=== PATIENT | male | born 1940 | race American Indian/Alaskan Native ===

== ENCOUNTER 2017-03-20 19:10 | Emergency (ER) | payer MEDICARE ==
--- NOTE | 2017-03-20 20:50 | Emergency Department Report ---
ED Fall HPI - General Chief Complaint: Fall Stated Complaint: LEFT RIB INJURY Time Seen by Provider: 03/20/17 20:34 Source: patient Mode of arrival: Ambulatory - History of Present Illness Initial Comments: Patient is a 76-year-old male history of hypertension brought into the ER for evaluation after a fall. Patient stated that he was going up a stair when he tripped and fell on his left side. Patient denied any head injury or loss of consciousness. No bowel or bladder incontinence. No weakness numbness or tingling sensation. Patient is complaining of left upper chest pain and mid thoracic pain. MD Complaint: fall -: Sudden, This evening Fall From: down stairs (#) When Fall Occurred: just prior to arrival Fall Witnessed: yes, by family Place Fall Occurred: home Loss of Consciousness: none Prolonged Down Time?: no Symptoms Prior to Fall: none Location: face, chest, back Severity: moderate Quality: sharp Context: tripped/slipped Associated Symptoms: denies, chest paint. denies: headache, neck pain, numbness , weakness, shortness of breath, abdominal pain, hematuria, unable to walk, lightheaded, vertigo, confusion - Related Data Previous Rx's Medication Instructions Recorded Last Taken Type Aspirin [Adult Low Dose Aspirin EC] 81 mg PO DAILY #30 tablet. 05/10/15 Unknown Rx Losartan [Cozaar] 50 mg PO QHS #30 tablet 05/10/15 Unknown Rx amLODIPine [Norvasc] 10 mg PO HS #30 tablet 05/10/15 Unknown Rx Allergies Allergy/AdvReac Type Severity Reaction Status Date / Time No Known Allergies Allergy Unverified 05/09/15 11:40 ED Review of Systems ROS: Stated complaint: LEFT RIB INJURY Other details as noted in HPI Comment: All other systems reviewed and negative Constitutional: denies: chills, fever Respiratory: denies: cough, shortness of breath, SOB with exertion, SOB at rest Cardiovascular: chest pain. denies: palpitations, dyspnea on exertion, orthopnea, paroxysmal nocturnal dyspnea Gastrointestinal: denies: abdominal pain, nausea, vomiting, diarrhea, constipation, hematemesis, melena, hematochezia Genitourinary: denies: urgency, frequency Musculoskeletal: back pain. denies: joint swelling, arthralgia Skin: denies: rash, lesions Neurological: denies: headache, weakness, numbness, paresthesias, confusion, abnormal gait, vertigo ED Past Medical Hx - Past Medical History Previous Medical History?: Yes Hx Hypertension: Yes - Surgical History Past Surgical History?: Yes Hx Appendectomy: Yes (approx 40 yrs ago per pt) - Social History Smoking Status: Never Smoker Substance Use Type: Alcohol - Medications Home Medications: Home Medications Medication Instructions Recorded Confirmed Last Taken Type Aspirin [Adult Low Dose Aspirin EC] 81 mg PO DAILY #30 tablet. 05/10/15 Unknown Rx Losartan [Cozaar] 50 mg PO QHS #30 tablet 05/10/15 Unknown Rx amLODIPine [Norvasc] 10 mg PO HS #30 tablet 05/10/15 Unknown Rx ED Physical Exam - General Limitations: No Limitations General appearance: alert, in no apparent distress - Head Head exam: Present: atraumatic, normocephalic, normal inspection - Eye Eye exam: Present: other (left eye with subconjunctival hemorrhage) Pupils: Present: normal accommodation - ENT ENT exam: Present: normal exam, normal orophraynx, mucous membranes moist - Neck Neck exam: Present: normal inspection, full ROM. Absent: tenderness, meningismus, lymphadenopathy, thyromegaly - Respiratory Respiratory exam: Present: normal lung sounds bilaterally, chest wall tenderness , other (left upper chest tenderness). Absent: respiratory distress, wheezes, rales, rhonchi, stridor, accessory muscle use, decreased breath sounds, prolonged expiratory - Cardiovascular Cardiovascular Exam: Present: regular rate, normal rhythm, normal heart sounds - GI/Abdominal GI/Abdominal exam: Present: soft, diminished bowel sounds. Absent: distended, tenderness, guarding, rebound, rigid, normal bowel sounds, organomegaly, mass, bruit, pulsatile mass, hernia - Extremities Exam Extremities exam: Present: normal inspection, full ROM, normal capillary refill - Back Exam Back exam: Present: normal inspection, paraspinal tenderness. Absent: tenderness, CVA tenderness (R), CVA tenderness (L), muscle spasm - Neurological Exam Neurological exam: Present: alert, oriented X3, CN II-XII intact, reflexes normal. Absent: abnormal gait, motor sensory deficit - Skin Skin exam: Present: warm, intact, normal color ED Course Vital Signs 03/20/17 03/20/17 03/20/17 19:17 20:10 20:15 Temperature 98 F 98.3 F Pulse Rate 83 76 Respiratory 18 16 16 Rate Blood Pressure 164/87 Blood Pressure 159/84 [Right] O2 Sat by Pulse 97 96 93 Oximetry 03/20/17 03/20/17 03/20/17 20:30 20:46 20:51 Temperature Pulse Rate 78 79 76 Respiratory 17 16 Rate Blood Pressure 146/81 146/81 Blood Pressure [Right] O2 Sat by Pulse 97 97 Oximetry 03/20/17 03/20/17 03/20/17 21:06 21:16 21:17 Temperature Pulse Rate 78 78 Respiratory 24 17 16 Rate Blood Pressure 146/81 139/83 Blood Pressure [Right] O2 Sat by Pulse 92 Oximetry 03/20/17 03/20/17 03/20/17 21:30 21:46 21:47 Temperature Pulse Rate 74 75 Respiratory 15 11 L 16 Rate Blood Pressure 142/73 142/73 Blood Pressure [Right] O2 Sat by Pulse 96 96 Oximetry ED Medical Decision Making - EKG Data -: EKG Interpreted by Mo EKG shows normal: sinus rhythm Rate: normal - EKG Data Interpretation: no acute changes - Radiology Data Radiology results: report reviewed Referring Physician: VIELKA SALAZAR Patient Name: VIJAY MCCLELLAN Date of : 1940 Sex: Male Report Date: 2017-03-20 Report Status: Finalized Findings [address] [address] XRay Report Signed Patient: VIJAY MCCLELLAN MR#: [id number] : 1940 Acct:[id number] Age/Sex: 76 / M ADM Date: 03/20/17 Loc: ED Attending Dr: Ordering Physician: VIELKA SALAZAR Date of Service: 03/20/17 Procedure(s): XR ribs UNILAT 2V LT Accession Number(s): [id number] cc: VIELKA SALAZAR Fluoro Time In Minutes: FINAL REPORT PROCEDURE: XR RIBS UNILAT 2V LT TECHNIQUE: Unilateral rib radiographs, 2 views of the LEFT ribs. HISTORY: s/p fall rib pain COMPARISON: No prior studies are available for comparison. FINDINGS: There are minimally displaced acute fractures of the left posterior lateral 5th, 6th, and 7th ribs. No underlying pneumothorax is identified. There appears to be left pleural fluid present. IMPRESSION: Left 5th, 6th, and 7th rib fractures Transcribed By: [facility] Dictated By: YUSUF LEONARDO M.D. Electronically Authenticated By: YUSUF LEONARDO M.D. Signed Date/Time: 03/20/171728 DD/ 28 TD/TT: 03/20/171728 - Medical Decision Making Patient stated that he is feeling much better. I informed him about his 3 fractures and the need to take a deep breath to prevent atelectasis and pneumonia. I advised him to return to the ER if he started developing any shortness of breath or chest pain. Critical care attestation.: If time is entered above; I have spent that time in minutes in the direct care of this critically ill patient, excluding procedure time. ED Disposition Clinical Impression: Multiple fractures of ribs of left side, Fall with injury Disposition: DC-01 TO HOME OR SELFCARE Is pt being admited?: No Condition: Stable Instructions: Rib Fracture (ED), Fall Prevention (ED)
[2017-03-20] MEDS ORDERED: MORPHINE IM ONE (20:56)
[2017-03-20] MEDS ORDERED: ZOFRAN IM ONE (20:56)
--- NOTE | 2017-03-20 21:33 | XRay Report ---
FINAL REPORT PROCEDURE: XR RIBS UNILAT 2V LT TECHNIQUE: Unilateral rib radiographs, 2 views of the LEFT ribs. HISTORY: s/p fall rib pain COMPARISON: No prior studies are available for comparison. FINDINGS: There are minimally displaced acute fractures of the left posterior lateral 5th, 6th, and 7th ribs. No underlying pneumothorax is identified. There appears to be left pleural fluid present. IMPRESSION: Left 5th, 6th, and 7th rib fractures
--- NOTE | 2017-03-20 21:38 | XRay Report ---
FINAL REPORT PROCEDURE: XR SPINE THORACIC 2V TECHNIQUE: Thoracic spine, AP and lateral views HISTORY: Pain after BACK INJURY COMPARISON: No prior studies are available for comparison. FINDINGS: No scoliosis. There are multilevel degenerative disc changes of the mid thoracic spine, with disc space narrowing and anterior osteophyte formation. IMPRESSION: Multilevel degenerative disc changes. No acute osseous abnormality is identified
[2017-03-20 22:02] LABS: Bilirubin,Urine NEG (Negative); Blood,Urine NEG (Negative); Color,Urine Amber (Yellow); Mucus,Urine FEW /HPF; Nitrite,Urine NEG (Negative)
[2017-03-21 00:27] VITALS: BP 136/78
== END 2017-03-21 | disposition home or self-care (01) ==
LOC: ED 19:10
DX: S22.42XA Multiple fractures of ribs, left side, initial encounter for closed fracture (principal); I10 Essential (primary) hypertension; W01.0XXA Fall on same level from slipping, tripping and stumbling without subsequent striking against object, initial encounter; Y93.89 Activity, other specified; Y92.89 Other specified places as the place of occurrence of the external cause; Y99.8 Other external cause status
CPT/HCPCS: 71100; 72070; 81001; 93005; 93010; 96372; 99284; J2270; J2405

== ENCOUNTER 2021-08-15 14:57 | Inpatient (IN) | payer MEDICARE ==
--- NOTE | 2021-08-15 16:23 | XRay Report ---
CHEST 1 VIEW INDICATION: Altered Mental Status. COMPARISON: 05/09/2015 FINDINGS: SUPPORT DEVICES: None. HEART: Within normal limits. LUNGS/PLEURA: Mild patchy left greater than right basilar airspace disease centrally. No effusion. ADDITIONAL FINDINGS: None. IMPRESSION: 1. Lung findings as above. Signer Name: Kevin Saleh MD Signed: 08/15/2021 4:18 PM Workstation Name: [id number]
[2021-08-15 17:00] LABS: Basophils % (Auto) 0.5 % (0.0-1.8); Eosinophils # (Auto) 0.1 K/mm3 (0.0-0.4); Eosinophils % (Auto) 0.8 % (0.0-4.3); Hematocrit 36.7 % (35.5-45.6); Hemoglobin 11.8 gm/dl (11.8-15.2); Lymphocytes # (Auto) 0.7 K/mm3 (1.2-5.4); Lymphocytes % (Auto) 6.6 % (13.4-35.0); Mean Corpuscular HGB Conc 32 % (32-34); Mean Corpuscular Volume 98 fl (84-94); Monocytes # (Auto) 0.7 K/mm3 (0.0-0.8); Monocytes % (Auto) 6.5 % (0.0-7.3); Platelet Count 337 K/mm3 (140-440); Red Blood Count 3.73 M/mm3 (3.65-5.03); Red Cell Distribution Width 14.5 % (13.2-15.2)
--- NOTE | 2021-08-15 17:02 | Emergency Department Report ---
ED General Adult HPI - General Chief complaint: Syncope Stated complaint: AMS/SYNCOPAL Time Seen by Provider: 08/15/21 15:25 Source: EMS Mode of arrival: Stretcher Limitations: Altered Mental Status, Physical Limitation - History of Present Illness Initial comments: The patient presents to the emergency department with a chief complaint of syncope/altered mental status. Per the patient's family the patient has a history of dementia but has been acting differently over the last couple of days. They state today patient had a fall striking his head. Patient was unconscious upon initial evaluation. They are not sure if the patient passed out first resulting in him hitting his head or if he hit his head and then passed out. -: Sudden Location: head Consistency: constant Improves with: none Worsens with: none Associated Symptoms: denies other symptoms Treatments Prior to Arrival: none - Related Data Previous Rx's Medication Instructions Recorded Last Taken Type Aspirin [Adult Low Dose Aspirin EC] 81 mg PO DAILY #30 tablet. 05/10/15 Unknown Rx Losartan [Cozaar] 50 mg PO QHS #30 tablet 05/10/15 Unknown Rx amLODIPine 10 mg PO HS #30 tablet 05/10/15 Unknown Rx Ondansetron [Zofran Odt] 4 mg PO Q8HR PRN #20 tab.rapdis 03/20/17 Unknown Rx oxyCODONE /ACETAMINOPHEN [Percocet 1 tab PO Q6HR PRN #20 tablet 03/20/17 Unknown Rx 5/325] Allergies Allergy/AdvReac Type Severity Reaction Status Date / Time No Known Allergies Allergy Unverified 05/09/15 11:40 ED Review of Systems ROS: Stated complaint: AMS/SYNCOPAL Other details as noted in HPI Comment: Unobtainable due to pts medical conditions (dementia) ED Past Medical Hx - Past Medical History Previous Medical History?: Yes Hx Hypertension: Yes Hx Dementia: Yes - Surgical History Past Surgical History?: Yes Hx Appendectomy: Yes (approx 40 yrs ago per pt) - Social History Smoking Status: Unknown if ever smoked - Medications Home Medications: Home Medications Medication Instructions Recorded Confirmed Last Taken Type Aspirin [Adult Low Dose Aspirin EC] 81 mg PO DAILY #30 tablet. 05/10/15 Unknown Rx Losartan [Cozaar] 50 mg PO QHS #30 tablet 05/10/15 Unknown Rx amLODIPine 10 mg PO HS #30 tablet 05/10/15 Unknown Rx Ondansetron [Zofran Odt] 4 mg PO Q8HR PRN #20 tab.rapdis 03/20/17 Unknown Rx oxyCODONE /ACETAMINOPHEN [Percocet 1 tab PO Q6HR PRN #20 tablet 03/20/17 Unknown Rx 5/325] ED Physical Exam - General Limitations: Altered Mental Status, Physical Limitation General appearance: in no apparent distress, other (confused) - Head Head exam: Present: atraumatic, normocephalic - Eye Eye exam: Present: normal appearance, PERRL. Absent: scleral icterus, conjunctival injection - ENT ENT exam: Present: normal exam, mucous membranes moist - Respiratory Respiratory exam: Present: normal lung sounds bilaterally. Absent: respiratory distress, wheezes - Cardiovascular Cardiovascular Exam: Present: regular rate, normal rhythm - GI/Abdominal GI/Abdominal exam: Present: soft, normal bowel sounds. Absent: distended, tende rness - Extremities Exam Extremities exam: Present: normal inspection - Neurological Exam Neurological exam: Present: other (Not able to fully assess due to the patient's baseline dementia. But patient moves all extremities without issue) - Psychiatric Psychiatric exam: Present: other (Limited due to the patient's baseline dementia) ED Course Vital Signs 08/15/21 08/15/21 08/15/21 15:11 15:57 16:00 Temperature 97.4 F L Pulse Rate 62 70 Respiratory 17 11 L 14 Rate Blood Pressure Blood Pressure 114/70 [Left] O2 Sat by Pulse 97 96 97 Oximetry 08/15/21 08/15/21 08/15/21 16:01 16:15 16:30 Temperature Pulse Rate 79 62 60 Respiratory 13 15 15 Rate Blood Pressure 135/65 135/65 135/65 Blood Pressure [Left] O2 Sat by Pulse 77 L 100 100 Oximetry 08/15/21 08/15/21 08/15/21 16:45 17:01 17:15 Temperature Pulse Rate 76 63 58 L Respiratory 13 16 12 Rate Blood Pressure Blood Pressure [Left] O2 Sat by Pulse 97 100 100 Oximetry 08/15/21 08/15/21 08/15/21 17:31 17:45 18:01 Temperature Pulse Rate 61 59 L 59 L Respiratory 12 16 15 Rate Blood Pressure 123/57 123/57 123/57 Blood Pressure [Left] O2 Sat by Pulse 88 99 100 Oximetry ED Medical Decision Making - Lab Data Result diagrams: 08/15/21 16:52 Lab Results 08/15/21 08/15/21 08/15/21 Range/Units 16:52 16:52 16:52 WBC 10.2 (4.5-11.0) K/mm3 RBC 3.73 (3.65-5.03) M/mm3 Hgb 11.8 (11.8-15.2) gm/dl Hct 36.7 (35.5-45.6) % MCV 98 H (84-94) fl MCH 32 (28-32) pg MCHC 32 (32-34) % RDW 14.5 (13.2-15.2) % Plt Count 337 (140-440) K/mm3 Lymph % (Auto) 6.6 L (13.4-35.0) % Holmes % (Auto) 6.5 (0.0-7.3) % Eos % (Auto) 0.8 (0.0-4.3) % Baso % (Auto) 0.5 (0.0-1.8) % Lymph # (Auto) 0.7 L (1.2-5.4) K/mm3 Holmes # (Auto) 0.7 (0.0-0.8) K/mm3 Eos # (Auto) 0.1 (0.0-0.4) K/mm3 Baso # (Auto) 0.0 (0.0-0.1) K/mm3 Seg Neutrophils % 85.6 H (40.0-70.0) % Seg Neutrophils # 8.7 H (1.8-7.7) K/mm3 PT 13.6 (12.2-14.9) Sec. INR 0.94 (0.87-1.13) APTT 33.2 (24.2-36.6) Sec. Lactic Acid 5.50 H* (0.7-2.0) mmol/L Ammonia (25-60) umol/L Total Creatine Kinase (55-170) units/L Troponin T (0.00-0.029) ng/mL TSH (0.270-4.200) mlU/mL Plasma/Serum Alcohol (0-0.07) % 08/15/21 08/15/21 08/15/21 Range/Units 16:52 16:52 16:52 WBC (4.5-11.0) K/mm3 RBC (3.65-5.03) M/mm3 Hgb (11.8-15.2) gm/dl Hct (35.5-45.6) % MCV (84-94) fl MCH (28-32) pg MCHC (32-34) % RDW (13.2-15.2) % Plt Count (140-440) K/mm3 Lymph % (Auto) (13.4-35.0) % Holmes % (Auto) (0.0-7.3) % Eos % (Auto) (0.0-4.3) % Baso % (Auto) (0.0-1.8) % Lymph # (Auto) (1.2-5.4) K/mm3 Holmes # (Auto) (0.0-0.8) K/mm3 Eos # (Auto) (0.0-0.4) K/mm3 Baso # (Auto) (0.0-0.1) K/mm3 Seg Neutrophils % (40.0-70.0) % Seg Neutrophils # (1.8-7.7) K/mm3 PT (12.2-14.9) Sec. INR (0.87-1.13) APTT (24.2-36.6) Sec. Lactic Acid (0.7-2.0) mmol/L Ammonia 24.0 L (25-60) umol/L Total Creatine Kinase 68 (55-170) units/L Troponin T 0.018 (0.00-0.029) ng/mL TSH 7.680 H (0.270-4.200) mlU/mL Plasma/Serum Alcohol (0-0.07) % 08/15/21 Range/Units 16:52 WBC (4.5-11.0) K/mm3 RBC (3.65-5.03) M/mm3 Hgb (11.8-15.2) gm/dl Hct (35.5-45.6) % MCV (84-94) fl MCH (28-32) pg MCHC (32-34) % RDW (13.2-15.2) % Plt Count (140-440) K/mm3 Lymph % (Auto) (13.4-35.0) % Holmes % (Auto) (0.0-7.3) % Eos % (Auto) (0.0-4.3) % Baso % (Auto) (0.0-1.8) % Lymph # (Auto) (1.2-5.4) K/mm3 Holmes # (Auto) (0.0-0.8) K/mm3 Eos # (Auto) (0.0-0.4) K/mm3 Baso # (Auto) (0.0-0.1) K/mm3 Seg Neutrophils % (40.0-70.0) % Seg Neutrophils # (1.8-7.7) K/mm3 PT (12.2-14.9) Sec. INR (0.87-1.13) APTT (24.2-36.6) Sec. Lactic Acid (0.7-2.0) mmol/L Ammonia (25-60) umol/L Total Creatine Kinase (55-170) units/L Troponin T (0.00-0.029) ng/mL TSH (0.270-4.200) mlU/mL Plasma/Serum Alcohol < 0.01 (0-0.07) % - Radiology Data Radiology results: report reviewed - Medical Decision Making IV fluids at 30 cc/kg were initiated IV antibiotics initiated Critical Care Time: Yes Critical care time in (mins) excluding proc time.: 35 Critical care attestation.: If time is entered above; I have spent that time in minutes in the direct care of this critically ill patient, excluding procedure time. ED Disposition Clinical Impression: Sepsis Disposition: 09 ADMITTED INPATIENT Is pt being admited?: Yes Does the pt Need Aspirin: No Condition: Fair Referrals: PRIMARY CARE, [Primary Care Provider] - 3-5 Days
[2021-08-15 17:13] LABS: INR 0.94 (0.87-1.13)
[2021-08-15 17:14] LABS: Partial Thromboplastin Time 33.2 Sec. (24.2-36.6)
[2021-08-15] MEDS ORDERED: CEFEPIME/NS 2 GM/100 ML 2 GM/100 ML BAG IV ONE (17:33)
--- NOTE | 2021-08-15 17:53 | Cat Scan Report ---
CT head/brain wo con INDICATION / CLINICAL INFORMATION: 81 years Male; Altered Mental Status. TECHNIQUE: Routine CT head without contrast. All CT scans at this location are performed using CT dos e reduction for ALARA by means of automated exposure control. COMPARISON: No previous exams are currently available for direct comparison. FINDINGS: BRAIN / INTRACRANIAL CONTENTS: There is extensive cerebral white matter disease most consistent with microvascular angiopathy. There is moderate cerebral atrophy with associated prominence of the ventri cular system. There are mild foci calcification within the basal ganglia. There is no clear CT eviden ce of acute intracranial hemorrhage or significant mass effect. ORBITS: No significant abnormality of visualized orbits. SINUSES / MASTOIDS: There is minimal mucosal thickening along the visualized posterior left maxillary sinus. CRANIOCERVICAL JUNCTION: No significant abnormality. ADDITIONAL FINDINGS: None. IMPRESSION: 1. There is extensive microvascular angiopathy and moderate cerebral atrophy as described without CT evidence of acute intracranial hemorrhage. Signer Name: Aleksandr Wheatley MD Signed: 08/15/2021 5:49 PM Workstation Name: [id number]
[2021-08-15] MEDS ORDERED: SODIUM CHLORIDE 0.9% 1000 ML IV SOLN IV ONE (18:13)
--- NOTE | 2021-08-15 18:26 | History and Physical Report ---
History of Present Illness Chief complaint: He is getting weak History of present illness: 81 YO Male with Alzheimer's Dementia with a FAST Score of 7D, HTN, Debility presents to ED for evaluation. The patient is confused with diminished cognition and is unable to provide history. Patient history provided by EMS sta ff, ED staff, as well as the patient's son who is at bedside during exam and interview. As per son "he is getting weaker by the day". Patient son reports that over the past 2 months the patient has experienced increased weakness, diminished oral intake, weight loss, and memory loss. Patient is currently bedbound, nonambulatory, and has increasing difficulty recognizing family members. Patient tried to get out of bed today and subsequently fell striking his head on the floor with subsequent loss of consciousness. EMS was notified and upon arrival the patient was found to be in distress and subsequently transported to [facility] for further care and evaluation of the aforementioned symptoms. The patient was seen and evaluated in the emergency department. All lab and imaging studies reviewed. Patient found to have a pulse oximetry of 88% on room air which is consistent with acute hypoxemic respiratory failure. Patient also found to have pneumonia complicated by sepsis. Patient admitted to medical floor and initiated on pneumonia protocol, sepsis protocol as well as coronavirus protocol. No further history is obtainable. Patient has diminished cognition but has a positive gag reflex and is able to protect his airway without difficulty. No prior admission for review. All medication listed at time of admission has been reconciled. Advanced care planning conducted in ED. No reports of fever, chills, chest pain, palpitation, productive cough, skin rash, recent contact, known exposure to COVID-19. Past History Past Medical History: hypertension, other (See HPI) Past Surgical History: appendectomy Social history: single, lives with family. denies: smoking, alcohol abuse, prescription drug abuse Family history: hypertension Medications and Allergies Allergies Allergy/AdvReac Type Severity Reaction Status Date / Time No Known Allergies Allergy Unverified 05/09/15 11:40 Home Medications Medication Instructions Recorded Confirmed Last Taken Type Aspirin [Adult Low Dose Aspirin EC] 81 mg PO DAILY #30 tablet. 05/10/15 Unknown Rx Losartan [Cozaar] 50 mg PO QHS #30 tablet 05/10/15 Unknown Rx amLODIPine 10 mg PO HS #30 tablet 05/10/15 Unknown Rx Ondansetron [Zofran Odt] 4 mg PO Q8HR PRN #20 tab.rapdis 03/20/17 Unknown Rx oxyCODONE /ACETAMINOPHEN [Percocet 1 tab PO Q6HR PRN #20 tablet 03/20/17 Unknown Rx 5/325] Review of Systems ROS unobtainable: due to mental status Exam - Constitutional Vitals: Temp Pulse Resp BP Pulse Ox 97.4 F L 59 L 15 123/57 100 08/15/21 15:11 08/15/21 18:01 08/15/21 18:01 08/15/21 18:01 08/15/21 18:01 General appearance: Present: mild distress - EENT Eyes: Present: PERRL ENT: hearing intact, clear oral mucosa - Neck Neck: Present: supple, normal ROM - Respiratory Respiratory effort: normal Respiratory: bilateral: diminished - Cardiovascular Heart Sounds: Present: S1 & S2. Absent: rub, click - Extremities Extremities: pulses symmetrical, No edema Peripheral Pulses: abnormal (Capillary refill greater than 3.5 seconds) - Abdominal General gastrointestinal: Present: soft, non-tender, non-distended, normal bowel sounds Male genitourinary: Present: normal - Integumentary Integumentary: Present: warm, dry, clammy, decreased turgor - Musculoskeletal Musculoskeletal: generalized weakness - Psychiatric Psychiatric: no appropriate mood/affect, no intact judgment & insight, no memory intact, agitated - Neurologic Neurologic: CNII-XII intact, moves all extremities, no gait normal HEART Score - HEART Score Troponin: Troponin T 0.018 ng/mL (0.00-0.029) 08/15/21 16:52 Results - Labs CBC & Chem 7: 08/15/21 16:52 Labs: Abnormal lab results 08/15/21 08/15/21 08/15/21 Range/Units 16:52 16:52 16:52 MCV 98 H (84-94) fl Lymph % (Auto) 6.6 L (13.4-35.0) % Lymph # (Auto) 0.7 L (1.2-5.4) K/mm3 Seg Neutrophils % 85.6 H (40.0-70.0) % Seg Neutrophils # 8.7 H (1.8-7.7) K/mm3 Lactic Acid 5.50 H* (0.7-2.0) mmol/L Ammonia 24.0 L (25-60) umol/L TSH (0.270-4.200) mlU/mL 08/15/21 Range/Units 16:52 MCV (84-94) fl Lymph % (Auto) (13.4-35.0) % Lymph # (Auto) (1.2-5.4) K/mm3 Seg Neutrophils % (40.0-70.0) % Seg Neutrophils # (1.8-7.7) K/mm3 Lactic Acid (0.7-2.0) mmol/L Ammonia (25-60) umol/L TSH 7.680 H (0.270-4.200) mlU/mL Assessment and Plan - Patient Problems (1) Sepsis Current Visit: Yes Status: Acute Qualifiers: Severe sepsis acute organ dysfunction type: acute respiratory failure Plan to address problem: Sepsis protocol: Chest x-ray, CBC, urinalysis, IV antibiotic therapy, IV fluid resuscitation, maintain mean arterial pressure greater than equal to 65, monitor urine output every shift, monitor fluid balance, serial lactic acid level, blood cultures. (2) Acute hypoxemic respiratory failure Current Visit: Yes Status: Acute Plan to address problem: Chest x-ray, supplemental oxygen, pulse oximetry, nebulizer therapy, pulmonary toilet. (3) Pneumonia Current Visit: Yes Status: Acute Plan to address problem: Pneumonia protocol: Chest x-ray, CBC, CMP, supplemental oxygen, pulse oximetry, nebulizer therapy, IV antibiotic therapy, pulmonary toilet. (4) Suspected 2019-nCoV infection Current Visit: Yes Status: Acute Plan to address problem: Coronavirus protocol: IV for resuscitation therapy, IV antibiotic therapy, vitamin C therapy, vitamin D therapy, zinc therapy, prophylactic anticoagulation (5) Alzheimer's dementia Current Visit: Yes Status: Acute Qualifiers: Dementia behavioral disturbance: with behavioral disturbance Plan to address problem: Verbal prompting, verbal redirection, benzodiazepine therapy as clinically indicated. Patient has a fast score of 7D. (6) Debility Current Visit: Yes Status: Acute Plan to address problem: Patient is bedbound and nonambulatory, supportive care, fall precautions. (7) DVT prophylaxis Current Visit: Yes Status: Acute Plan to address problem: SCDs to bilateral lower extremities while in bed, prophylactic anticoagulation (8) Advance care planning Current Visit: Yes Status: Acute Plan to address problem: Disease education done, care plan discussed, diagnoses discussed, prognosis discussed, patient is full code at this time. Patient prognosis guarded discussed with patient's son Rene Manuel [phone]. Patient son acknowledges understanding prognosis and also acknowledges understanding and agreement with current care plan. Patient's son requests home hospice evaluation. He does hospice notified as per family request. +30 minutes. (9) Preventative health care Current Visit: Yes Status: Acute Plan to address problem: Patient and family counseled regarding home safety precautions, bed alarm, outpatient follow-up with primary care physician for all age and risk factor appropriate screening test. +30 minutes.
[2021-08-15] MEDS ORDERED: LORazepam 2 MG/ML VIAL IV ONE (19:41)
[2021-08-15] MEDS ORDERED: ACETAMINOPHEN 325 MG TAB PO PRN ×2 (19:46→19:53)
[2021-08-15] MEDS ORDERED: HYDROmorphone 0.5 MG/0.5 ML INJ IV PRN ×2 (19:46→19:55)
[2021-08-15] MEDS ORDERED: LORazepam 2 MG/ML VIAL IV PRN (19:47)
--- NOTE | 2021-08-15 19:51 | Procedure Note ---
Date of procedure: 08/15/21 Pre-op diagnosis: Sepsis Post-op diagnosis: same Procedure: Right femoral vein triple-lumen catheter placed under ultrasound guidance The patient was prepped and draped in the usual sterile fashion. A timeout was taken with the patient's nurse at bedside to verify the correct patient, the correct procedure, and the correct operative site. Local anesthesia was obtained with 1% lidocaine. The Seldinger technique was utilized to access the right femoral vein under ultrasound guidance. A seeker needle was utilized under ultrasound guidance and was inserted into the right femoral vein without difficulty. A guidewire was then advanced into the right femoral vein and the seeker needle subsequently removed. A scalpel was used to incise the skin. A dilator was then passed over the guidewire into the right femoral vein and subsequently removed. A preflush triple-lumen catheter was then advanced to the right femoral vein without difficulty. All 3 ports flush and drawl with ease. 3O nylon suture was utilized to suture the triple-lumen catheter in place. A Biopatch was placed at the insertion site. A sterile dressing was utilized to cover the triple-lumen catheter. Estimated blood loss minimal. Complications none. Specimens none. Anesthesia: local Surgeon: MERLIN MCKEON Estimated blood loss: minimal Pathology: none Condition: stable Disposition: floor
[2021-08-15] MEDS ORDERED: ALBUTEROL 2.5 MG/3 ML NEBU IH PRN (19:53)
[2021-08-15] MEDS ORDERED: ONDANSETRON 4 MG/2 ML INJ IV PRN (19:53)
[2021-08-15] MEDS ORDERED: oxyCODONE /ACETAMINOPHEN 5-325MG TAB PO PRN (19:53)
[2021-08-15] MEDS ORDERED: SODIUM CHLORIDE 0.45% 1000 ML 1,000 ML IV SCH (20:00)
[2021-08-15 23:03] LABS: Bilirubin,Urine NEG (Negative); Blood,Urine SM (Negative); Color,Urine Straw (Yellow); Protein,Urine <15 mg/dL mg/dL (Negative); Urobilinogen,Urine < 2.0 mg/dL (<2.0)
[2021-08-15 23:12] LABS: Bacteria,Urine 1+ /HPF (Negative)
[2021-08-15] MEDS: amLODIPine 10 MG TAB PO SCH (23:46)
[2021-08-15] MEDS: methylPREDNISolone Sod Succinate 40 MG/1 ML INJ IV SCH (23:48)
[2021-08-15] MEDS: ASCORBIC ACID 500 MG TAB PO SCH (23:48)
[2021-08-15] MEDS: ZINC SULFATE 220 MG CAP PO SCH (23:48)
[2021-08-15] MEDS: LOSARTAN 50 MG TAB PO SCH (23:49)
[2021-08-16] MEDS: HEPARIN 5,000 UNIT/1 ML VIAL SUB-Q SCH ×3 (02:08→22:09)
[2021-08-16] MEDS: AZITHROMYCIN 250 MG TAB PO SCH ×2 (02:09→10:14)
[2021-08-16] MEDS: methylPREDNISolone Sod Succinate 40 MG/1 ML INJ IV SCH ×3 (06:02→22:08)
--- NOTE | 2021-08-16 10:04 | Electrocardiograph Report ---
[facility] Test Date: 2021-08-15 Test Time: 15:42:12 Pat Name: VIJAY MCCLELLAN Department: Room: A358 1 Gender: M Eap Consultant: NEELIMA : 1940 Requested By: YASMIN CAMARA Order Number: [id number] Reading MD: Soham Lange Measurements Intervals [place] Rate: 75 P: 76 VA: 171 QRS: -55 QRSD: 86 T: 68 QT: 389 QTc: 436 Interpretive Statements Sinus rhythm Left anterior fascicular block No previous ECG available for comparison Electronically Signed On 08-16-2021 10:04:35 EDT by Soham Lange
[2021-08-16] MEDS: ASCORBIC ACID 500 MG TAB PO SCH ×2 (10:14→22:09)
[2021-08-16] MEDS: ZINC SULFATE 220 MG CAP PO SCH ×2 (10:14→22:09)
[2021-08-16] MEDS: ASPIRIN EC 81 MG TAB PO SCH (10:14)
[2021-08-16] MEDS: CHOLECALCIFEROL (VIT D3) 1000 UNIT (25 mcg) TAB PO SCH (10:15)
--- NOTE | 2021-08-16 16:39 | Progress Note ---
Assessment and Plan Assessment and plan: (1) Sepsis Sepsis protocol: Chest x-ray, CBC, urinalysis, IV antibiotic therapy, IV fluid resuscitation, maintain mean arterial pressure greater than equal to 65, monitor urine output every shift, monitor fluid balance, serial lactic acid level, blood cultures. (2) Acute hypoxemic respiratory failure Chest x-ray, supplemental oxygen, pulse oximetry, nebulizer therapy, pulmonary toilet. (3) Pneumonia Pneumonia protocol: Chest x-ray, CBC, CMP, supplemental oxygen, pulse oximetry, nebulizer therapy, IV antibiotic therapy, pulmonary toilet. (4) Suspected 2019-nCoV infection- ruled out Coronavirus protocol: IV for resuscitation therapy, IV antibiotic therapy, vitamin C therapy, vitamin D therapy, zinc therapy, prophylactic anticoagulation (5) Alzheimer's dementia Verbal prompting, verbal redirection, benzodiazepine therapy as clinically indicated. Patient has a fast score of 7D. (6) Debility Patient is bedbound and nonambulatory, supportive care, fall precautions. (7) DVT prophylaxis SCDs to bilateral lower extremities while in bed, prophylactic anticoagulation (8) Advance care planning Disease education done, care plan discussed, diagnoses discussed, prognosis discussed, patient is full code at this time. Patient prognosis guarded discussed with patient's son Rene Manuel [phone]. Patient son acknowledges understanding prognosis and also acknowledges understanding and agreement with current care plan. Patient's son requests home hospice evaluation. He does hospice notified as per family request. +30 minutes. Disposition Plan: Continue medical management Total Time Spent with Patient (Minutes): 45 min History Interval history: No acute events overnight. Hospitalist Physical - Constitutional Vitals: Temp Pulse Resp BP Pulse Ox 98.1 F 65 18 122/71 97 08/16/21 01:34 08/16/21 01:34 08/16/21 01:34 08/16/21 07:21 08/16/21 10:00 General appearance: Present: no acute distress, cachectic - EENT Eyes: Present: PERRL, EOM intact ENT: hearing intact, clear oral mucosa, dentition normal - Neck Neck: Present: supple, normal ROM - Respiratory Respiratory effort: normal Respiratory: bilateral: diminished - Cardiovascular Rhythm: regular Heart Sounds: Present: S1 & S2 - Extremities Extremities: no ischemia, pulses intact, pulses symmetrical, No edema, normal temperature, normal color Peripheral Pulses: within normal limits - Abdominal General gastrointestinal: soft, non-tender, non-distended, normal bowel sounds - Integumentary Integumentary: Present: clear, warm, dry - Psychiatric Psychiatric: other (Unable to fully assess as patient is not fully communicating. ) - Neurologic Neurologic: CNII-XII intact - Allied Health Allied health notes reviewed: nursing HEART Score - HEART Score Troponin: Troponin T 0.018 ng/mL (0.00-0.029) 08/15/21 16:52 Results - Labs CBC & Chem 7: 08/15/21 16:52 Labs: Laboratory Last Values WBC 10.2 K/mm3 (4.5-11.0) 08/15/21 16:52 RBC 3.73 M/mm3 (3.65-5.03) 08/15/21 16:52 Hgb 11.8 gm/dl (11.8-15.2) 08/15/21 16:52 Hct 36.7 % (35.5-45.6) 08/15/21 16:52 MCV 98 fl (84-94) H 08/15/21 16:52 MCH 32 pg (28-32) 08/15/21 16:52 MCHC 32 % (32-34) 08/15/21 16:52 RDW 14.5 % (13.2-15.2) 08/15/21 16:52 Plt Count 337 K/mm3 (140-440) 08/15/21 16:52 Lymph % (Auto) 6.6 % (13.4-35.0) L 08/15/21 16:52 [place] % (Auto) 6.5 % (0.0-7.3) 08/15/21 16:52 Eos % (Auto) 0.8 % (0.0-4.3) 08/15/21 16:52 Baso % (Auto) 0.5 % (0.0-1.8) 08/15/21 16:52 Lymph # (Auto) 0.7 K/mm3 (1.2-5.4) L 08/15/21 16:52 [place] # (Auto) 0.7 K/mm3 (0.0-0.8) 08/15/21 16:52 Eos # (Auto) 0.1 K/mm3 (0.0-0.4) 08/15/21 16:52 Baso # (Auto) 0.0 K/mm3 (0.0-0.1) 08/15/21 16:52 Seg Neutrophils % 85.6 % (40.0-70.0) H 08/15/21 16:52 Seg Neutrophils # 8.7 K/mm3 (1.8-7.7) H 08/15/21 16:52 PT 13.6 Sec. (12.2-14.9) 08/15/21 16:52 INR 0.94 (0.87-1.13) 08/15/21 16:52 APTT 33.2 Sec. (24.2-36.6) 08/15/21 16:52 Lactic Acid 3.00 mmol/L (0.7-2.0) H* 08/15/21 23:32 Ammonia 24.0 umol/L (25-60) L 08/15/21 16:52 Total Creatine Kinase 68 units/L (55-170) 08/15/21 16:52 Troponin T 0.018 ng/mL (0.00-0.029) 08/15/21 16:52 TSH 7.680 mlU/mL (0.270-4.200) H 08/15/21 16:52 Urine Color Straw (Yellow) 08/15/21 21:52 Urine Turbidity Clear (Clear) 08/15/21 21:52 Urine pH 6.0 (5.0-7.0) 08/15/21 21:52 Ur Specific [place] 1.008 (1.003-1.030) 08/15/21 21:52 Urine Protein <15 mg/dl mg/dL (Negative) 08/15/21 21:52 Urine Glucose (UA) Neg mg/dL (Negative) 08/15/21 21:52 Urine Ketones Neg mg/dL (Negative) 08/15/21 21:52 Urine Blood Sm (Negative) 08/15/21 21:52 Urine Nitrite Neg (Negative) 08/15/21 21:52 Urine Bilirubin Neg (Negative) 08/15/21 21:52 Urine Urobilinogen < 2.0 mg/dL (<2.0) 08/15/21 21:52 Ur Leukocyte Esterase Lg (Negative) 08/15/21 21:52 Urine WBC (Auto) 86.0 /HPF (0.0-6.0) H 08/15/21 21:52 Urine RBC (Auto) 27.0 /HPF (0.0-6.0) 08/15/21 21:52 U Epithel Cells (Auto) < 1.0 /HPF (0-13.0) 08/15/21 21:52 Urine Bacteria (Auto) 1+ /HPF (Negative) 08/15/21 21:52 Urine Yeast (Budding) 2+ /HPF 08/15/21 21:52 Plasma/Serum Alcohol < 0.01 % (0-0.07) 08/15/21 16:52 Coronavirus (PCR) Negative (Negative) 08/16/21 09:18 Blood Type B POSITIVE 08/15/21 20:00 Antibody Screen Negative 08/15/21 20:00 Microbiology: Microbiology 08/15/21 16:52 Peripheral/Venous Blood Culture - Preliminary Culture in Progress 08/15/21 16:52 Peripheral/Venous Blood Culture - Preliminary Culture in Progress Ralph/IV: Voiding Method Indwelling Catheter Active Medications - Current Medications Current Medications: Generic Name Dose Route Start Last Admin Trade Name Freq PRN Reason Stop Dose Admin Acetaminophen 650 mg 08/15/21 19:53 Acetaminophen 325 Mg Tab PO Q4H PRN Pain MILD(1-3)/Fever >100.5/HELLER Albuterol 2.5 mg 08/15/21 19:53 Albuterol 2.5 Mg/3 Ml Nebu IH Q4HRT PRN Shortness Of Breath Amlodipine Besylate 10 mg 08/15/21 22:00 08/15/21 23:46 Amlodipine 10 Mg Tab PO 10 mg HS RITA Administration Ascorbic Acid 500 mg 08/15/21 22:00 08/16/21 10:14 Ascorbic Acid 500 Mg Tab PO 500 mg BID RITA Administration Aspirin 81 mg 08/16/21 10:00 08/16/21 10:14 Aspirin Ec 81 Mg Tab PO 81 mg DAILY RITA Administration Azithromycin 500 mg 08/15/21 22:00 08/16/21 10:14 Azithromycin 250 Mg Tab PO 08/19/21 10:01 500 mg QDAY RITA Administration Protocol Cholecalciferol 1,000 unit 08/16/21 10:00 08/16/21 10:15 Cholecalciferol (Vit D3) 1000 Unit (25 Mcg) Tab PO 1,000 unit QDAY RITA Administration Heparin Sodium (Porcine) 5,000 unit 08/15/21 22:00 08/16/21 10:13 Heparin 5,000 Unit/1 Ml Vial SUB-Q 5,000 unit Q12HR RITA Administration Hydromorphone HCl 0.25 mg 08/15/21 19:55 Hydromorphone 0.5 Mg/0.5 Ml Inj IV Q8H PRN Pain , Severe (7-10) Ceftriaxone Sodium 2 gm in 100 mls @ 200 mls/hr 08/16/21 18:00 Rocephin/Ns 2 Gm/100 Ml IV Q24H RITA Protocol Sodium Chloride 1,000 mls @ 42 mls/hr 08/15/21 20:00 Nacl 0.45% 1000 Ml IV DIRECT RITA Lorazepam 1 mg 08/15/21 19:47 Lorazepam 2 Mg/Ml Vial IV Q8H PRN Agitation Losartan Potassium 50 mg 08/15/21 22:00 08/15/21 23:49 Losartan 50 Mg Tab PO 50 mg QHS RITA Administration Methylprednisolone Sodium Succinate 40 mg 08/15/21 22:00 08/16/21 14:35 Methylprednisolone Sod Succinate 40 Mg/1 Ml Inj IV 40 mg Q8HR RITA Administration Ondansetron HCl 4 mg 08/15/21 19:53 Ondansetron 4 Mg/2 Ml Inj IV Q8H PRN Nausea And Vomiting Oxycodone/Acetaminophen 1 tab 08/15/21 19:53 Oxycodone /Acetaminophen 5-325mg Tab PO Q6H PRN Pain, Moderate (4-6) Sodium Chloride 10 ml 08/15/21 22:00 08/16/21 10:15 Sodium Chloride 0.9% 10 Ml Flush Syringe IV 10 ml BID RITA Administration Sodium Chloride 10 ml 08/15/21 19:53 Sodium Chloride 0.9% 10 Ml Flush Syringe IV PRN PRN LINE FLUSH Zinc Sulfate 220 mg 08/15/21 22:00 08/16/21 10:14 Zinc Sulfate 220 Mg Cap PO 220 mg BID RITA Administration
[2021-08-16] MEDS: cefTRIAXone/NS 2 GM/100 ML 2 GM/100 ML BAG IV SCH (17:24)
[2021-08-16] MEDS: LOSARTAN 50 MG TAB PO SCH ×2 (22:08→22:11)
[2021-08-16] MEDS: amLODIPine 10 MG TAB PO SCH (22:09)
[2021-08-17] MEDS: methylPREDNISolone Sod Succinate 40 MG/1 ML INJ IV SCH ×2 (05:32→17:52)
[2021-08-17] MEDS: ASPIRIN EC 81 MG TAB PO SCH (12:36)
[2021-08-17] MEDS: ASCORBIC ACID 500 MG TAB PO SCH (12:36)
[2021-08-17] MEDS: HEPARIN 5,000 UNIT/1 ML VIAL SUB-Q SCH ×2 (12:37→21:14)
[2021-08-17] MEDS: ZINC SULFATE 220 MG CAP PO SCH (12:37)
[2021-08-17] MEDS: CHOLECALCIFEROL (VIT D3) 1000 UNIT (25 mcg) TAB PO SCH (12:37)
[2021-08-17] MEDS: AZITHROMYCIN 250 MG TAB PO SCH (12:39)
--- NOTE | 2021-08-17 13:43 | Progress Note ---
Assessment and Plan Assessment and plan: #Sepsisresolved Lactic acidosis 5.0--> 3.0 Status post IV fluid resuscitation. Transitioning IV antibiotics to orals to complete 5-day antibiotic course for community-acquired pneumonia. Blood cultures NGTD #Acute hypoxic respiratory failureresolved #Community-acquired pneumonia Transitioned patient to room air (baseline oxygen requirement) Likely secondary to community-acquired pneumonia infection. Transitioning IV antibiotics to p.o. Levaquin 500 mg daily to complete a 5-day course. #Suspected COVID-19 infectionruled out Discontinue IV steroids, vitamin C therapy, vitamin D therapy, zinc therapy Unremarkable coronavirus PCR #Alzheimer's dementia #Debility Patient is currently bedbound/nonambulatory. Continue supportive care upon discharge with family. Continue verbal prompting, verbal redirection. Patient will be discharging home with home hospice per son (Rene [phone]) #Advanced care planning -Disease education conducted, care plan discussed, diagnoses discussed, prognosis discussed, and patient acknowledges understanding with care plan -Time: +30 min #Discharge planning -Patient is pending repeat lactic acid - Case management has been made aware. - Discharge is tentatively tomorrow morning as discussed with patient's son. Disposition Plan: Continue medical management Total Time Spent with Patient (Minutes): 45 minutes History Interval history: No acute events overnight. Hospitalist Physical - Constitutional Vitals: Temp Pulse Resp BP Pulse Ox 97.7 F 66 12 128/55 98 08/17/21 05:01 08/17/21 05:01 08/17/21 05:01 08/17/21 05:25 08/17/21 05:54 General appearance: Present: no acute distress, cachectic - EENT Eyes: Present: PERRL, EOM intact ENT: hearing intact, clear oral mucosa, dentition normal - Neck Neck: Present: supple, normal ROM - Respiratory Respiratory: bilateral: CTA - Cardiovascular Rhythm: regular Heart Sounds: Present: S1 & S2 - Extremities Extremities: no ischemia, pulses intact, pulses symmetrical, No edema, normal temperature, normal color Peripheral Pulses: within normal limits - Abdominal General gastrointestinal: soft, non-tender, non-distended, normal bowel sounds - Integumentary Integumentary: Present: clear, warm, dry - Psychiatric Psychiatric: other (Unable to assess given patient's dementia) - Neurologic Neurologic: other (Unable to assess given patient's dementia) - Allied Health Allied health notes reviewed: nursing HEART Score - HEART Score Troponin: Troponin T 0.018 ng/mL (0.00-0.029) 08/15/21 16:52 Results - Labs CBC & Chem 7: 08/15/21 16:52 Labs: Laboratory Last Values WBC 10.2 K/mm3 (4.5-11.0) 08/15/21 16:52 RBC 3.73 M/mm3 (3.65-5.03) 08/15/21 16:52 Hgb 11.8 gm/dl (11.8-15.2) 08/15/21 16:52 Hct 36.7 % (35.5-45.6) 08/15/21 16:52 MCV 98 fl (84-94) H 08/15/21 16:52 MCH 32 pg (28-32) 08/15/21 16:52 MCHC 32 % (32-34) 08/15/21 16:52 RDW 14.5 % (13.2-15.2) 08/15/21 16:52 Plt Count 337 K/mm3 (140-440) 08/15/21 16:52 Lymph % (Auto) 6.6 % (13.4-35.0) L 08/15/21 16:52 [place] % (Auto) 6.5 % (0.0-7.3) 08/15/21 16:52 Eos % (Auto) 0.8 % (0.0-4.3) 08/15/21 16:52 Baso % (Auto) 0.5 % (0.0-1.8) 08/15/21 16:52 Lymph # (Auto) 0.7 K/mm3 (1.2-5.4) L 08/15/21 16:52 [place] # (Auto) 0.7 K/mm3 (0.0-0.8) 08/15/21 16:52 Eos # (Auto) 0.1 K/mm3 (0.0-0.4) 08/15/21 16:52 Baso # (Auto) 0.0 K/mm3 (0.0-0.1) 08/15/21 16:52 Seg Neutrophils % 85.6 % (40.0-70.0) H 08/15/21 16:52 Seg Neutrophils # 8.7 K/mm3 (1.8-7.7) H 08/15/21 16:52 PT 13.6 Sec. (12.2-14.9) 08/15/21 16:52 INR 0.94 (0.87-1.13) 08/15/21 16:52 APTT 33.2 Sec. (24.2-36.6) 08/15/21 16:52 Lactic Acid 3.00 mmol/L (0.7-2.0) H* 08/15/21 23:32 Ammonia 24.0 umol/L (25-60) L 08/15/21 16:52 Total Creatine Kinase 68 units/L (55-170) 08/15/21 16:52 Troponin T 0.018 ng/mL (0.00-0.029) 08/15/21 16:52 TSH 7.680 mlU/mL (0.270-4.200) H 08/15/21 16:52 Urine Color Straw (Yellow) 08/15/21 21:52 Urine Turbidity Clear (Clear) 08/15/21 21:52 Urine pH 6.0 (5.0-7.0) 08/15/21 21:52 Ur Specific [place] 1.008 (1.003-1.030) 08/15/21 21:52 Urine Protein <15 mg/dl mg/dL (Negative) 08/15/21 21:52 Urine Glucose (UA) Neg mg/dL (Negative) 08/15/21 21:52 Urine Ketones Neg mg/dL (Negative) 08/15/21 21:52 Urine Blood Sm (Negative) 08/15/21 21:52 Urine Nitrite Neg (Negative) 08/15/21 21:52 Urine Bilirubin Neg (Negative) 08/15/21 21:52 Urine Urobilinogen < 2.0 mg/dL (<2.0) 08/15/21 21:52 Ur Leukocyte Esterase Lg (Negative) 08/15/21 21:52 Urine WBC (Auto) 86.0 /HPF (0.0-6.0) H 08/15/21 21:52 Urine RBC (Auto) 27.0 /HPF (0.0-6.0) 08/15/21 21:52 U Epithel Cells (Auto) < 1.0 /HPF (0-13.0) 08/15/21 21:52 Urine Bacteria (Auto) 1+ /HPF (Negative) 08/15/21 21:52 Urine Yeast (Budding) 2+ /HPF 08/15/21 21:52 Plasma/Serum Alcohol < 0.01 % (0-0.07) 08/15/21 16:52 Coronavirus (PCR) Negative (Negative) 08/16/21 09:18 Blood Type B POSITIVE 08/15/21 20:00 Antibody Screen Negative 08/15/21 20:00 Microbiology: Microbiology 08/15/21 16:52 Peripheral/Venous Blood Culture - Preliminary Coag Negative Staphylococcus 08/15/21 16:52 Peripheral/Venous Blood Culture - Preliminary Coag Negative Staphylococcus Ralph/IV: Voiding Method Incontinent Active Medications - Current Medications Current Medications: Generic Name Dose Route Start Last Admin Trade Name Freq PRN Reason Stop Dose Admin Acetaminophen 650 mg 08/15/21 19:53 Acetaminophen 325 Mg Tab PO Q4H PRN Pain MILD(1-3)/Fever >100.5/HELLER Albuterol 2.5 mg 08/15/21 19:53 Albuterol 2.5 Mg/3 Ml Nebu IH Q4HRT PRN Shortness Of Breath Amlodipine Besylate 10 mg 08/15/21 22:00 08/16/21 22:09 Amlodipine 10 Mg Tab PO 10 mg HS RITA Administration Ascorbic Acid 500 mg 08/15/21 22:00 08/17/21 12:36 Ascorbic Acid 500 Mg Tab PO 500 mg BID RITA Administration Aspirin 81 mg 08/16/21 10:00 08/17/21 12:36 Aspirin Ec 81 Mg Tab PO 81 mg DAILY RITA Administration Azithromycin 500 mg 08/15/21 22:00 08/17/21 12:39 Azithromycin 250 Mg Tab PO 08/19/21 10:01 500 mg QDAY RITA Administration Protocol Cholecalciferol 1,000 unit 08/16/21 10:00 08/17/21 12:37 Cholecalciferol (Vit D3) 1000 Unit (25 Mcg) Tab PO 1,000 unit QDAY RITA Administration Heparin Sodium (Porcine) 5,000 unit 08/15/21 22:00 08/17/21 12:37 Heparin 5,000 Unit/1 Ml Vial SUB-Q 5,000 unit Q12HR RITA Administration Hydromorphone HCl 0.25 mg 08/15/21 19:55 Hydromorphone 0.5 Mg/0.5 Ml Inj IV Q8H PRN Pain , Severe (7-10) Ceftriaxone Sodium 2 gm in 100 mls @ 200 mls/hr 08/16/21 18:00 08/16/21 17:24 Rocephin/Ns 2 Gm/100 Ml IV 200 mls/hr Q24H RITA Administration Protocol Sodium Chloride 1,000 mls @ 42 mls/hr 08/15/21 20:00 08/17/21 05:33 Nacl 0.45% 1000 Ml IV 42 mls/hr DIRECT RITA Administration Lorazepam 1 mg 08/15/21 19:47 Lorazepam 2 Mg/Ml Vial IV Q8H PRN Agitation Losartan Potassium 50 mg 08/15/21 22:00 08/16/21 22:11 Losartan 50 Mg Tab PO Not Given QHS RITA Methylprednisolone Sodium Succinate 40 mg 08/15/21 22:00 08/17/21 05:32 Methylprednisolone Sod Succinate 40 Mg/1 Ml Inj IV 40 mg Q8HR RITA Administration Ondansetron HCl 4 mg 08/15/21 19:53 Ondansetron 4 Mg/2 Ml Inj IV Q8H PRN Nausea And Vomiting Oxycodone/Acetaminophen 1 tab 08/15/21 19:53 Oxycodone /Acetaminophen 5-325mg Tab PO Q6H PRN Pain, Moderate (4-6) Sodium Chloride 10 ml 08/15/21 22:00 08/17/21 12:37 Sodium Chloride 0.9% 10 Ml Flush Syringe IV 10 ml BID RITA Administration Sodium Chloride 10 ml 08/15/21 19:53 Sodium Chloride 0.9% 10 Ml Flush Syringe IV PRN PRN LINE FLUSH Zinc Sulfate 220 mg 08/15/21 22:00 08/17/21 12:37 Zinc Sulfate 220 Mg Cap PO 220 mg BID RITA Administration Nutrition/Malnutrition Assess - Dietary Evaluation Nutrition/Malnutrition Findings: Nutrition Notes Start: 08/16/21 16:43 Freq: Status: Active Protocol: Document 08/16/21 16:43 ASHLEY (Rec: 08/16/21 17:18 ASHLEY [id number]) Nutrition Notes Need for Assessment generated from: MD Order,fondant cooker,MST Initial or Follow up Assessment Current Diagnosis Sepsis,Hypertension Other Pertinent Diagnosis Pneumonia, Alzheimer Dementia, Debility, COVID-19 pui. Current Diet Cardiac -Mechanical Soft- Diet (since 08/15), D Suppl ( from D 08/16). Labs/Tests 08/16: N/A. Pertinent Medications 08/16: Vit C, Vit D3, ZnSO4, others nutritionally unremarkable. Height 5 ft 9 in Weight 86.183 kg [place] Body Weight (kg) 72.72 BMI 28.0 Intake Prior to Admission Poor Weight change and time frame Pt states being unsure if loss body weight EX CHEF. Weight Status Overweight Subjective/Other Information RD consult for risk of malnutrition, difficulty chewing and dietary supplementation assessments. No reports available on Pt's PO intake of meals at the time , but Pt has been presenting Poor PO intake for some time now along with difficulty chewing solid foods, according to History & Physical notes. I will prescribe Dietary supplementation to compensate for poor or insufficient PO intake of meals. I will also prescribe mechanical modification to diet to support the difficulty chewing condition and facilitate PO intake of meals. Pt is on Room Air, O2 saturation @ 97%, according to Physical Assessment History notes. Pt shows no signs of concern for risk of malnutrition at the time, according to Physical Assessment History notes. Percent of energy/protein needs met: Prescribed Cardiac -Mechanical Soft- Diet provides for energy/protein needs (2,230 Kcal/85 g) during LOS; additionally, Dietary Supplements will compensate for possible poor or insufficient PO intake of meals with 700 Kcal and 40 g of protein. Burn Absent Trauma Absent GI Symptoms None Food Allergy No Skin Integrity/Comment Assessment WNL. 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 As Evidenced by Signs and Symptoms Pt has been presenting Poor PO intake associated with difficulty chewing solid foods , according to History & Physical notes. #1 Nutrition Diagnosis Predicted suboptimal energy intake Etiology Debility, Dementia. As Evidenced by Signs and Symptoms No reports available on Pt's PO intake of meals at the time , but Pt has been presenting Poor PO intake for some time now, according to History & Physical notes. Is patient on ventilator? No Is Patient Ambulatory and/or Out of Bed No REE-([facility]-confined to bed) 5725.384 Calculation Used for Recommendations [facility] Additional Notes Protein: 1-1.2 g/Kg ABW; 86- 103 g/day. Fluids: 1 ml/Kcal, or as per MD. Nutrition Intervention Change Diet Order: Continue Cardiac -Mechanical Soft- Diet. Add Supplement/Snack (indicate name/kcal Start 8 fl oz Ensure Enlive; /protein ) BID. Provides kCal: 700 Provides Protein (gm) 40 Goal #1 Compensate, through dietary supplementation, for possible poor or insufficient PO intake of meals during LOS. Goal #2 Facilitate PO intake of meals with elemental, textural, or mechanical modification during LOS. Follow-Up By: 08/23/21 Additional Comments Continue monitoring food tolerance, %PO intake of meals , and BM.
--- NOTE | 2021-08-17 14:21 | Discharge Summary ---
Providers - Providers Date of Admission: 08/15/21 19:54 Date of discharge: 08/17/21 Attending physician: TIARA GAMBINO MD 08/16/21 06:22 Consult to Dietitian/Nutrition [CONS] Routine Physician Instructions: Reason For Exam: Reason for Consult: Malnutrition 08/16/21 15:03 Speech Therapy Evaluation and Treat [CONS] Routine Reason For Exam: assess swallowing Primary care physician: FIELD PLACEMENT DIRECTOR Hospitalization Reason for admission: Acute hypoxic respiratory failure Condition: Fair Pertinent studies: Reviewed. Procedures: None. Hospital course: 81 YO Male with Alzheimer's Dementia with a FAST Score of 7D, HTN, Debility presents to ED for evaluation. The patient is confused with diminished cognition and is unable to provide history. Patient history provided by EMS staff, ED staff, as well as the patient's son who is at bedside during exam and interview. As per son "he is getting weaker by the day". Patient son reports that over the past 2 months the patient has experienced increased weakness, diminished oral intake, weight loss, and memory loss. Patient is currently bedbound, nonambulatory, and has increasing difficulty recognizing family members. Patient tried to get out of bed today and subsequently fell striking his head on the floor with subsequent loss of consciousness. EMS was notified and upon arrival the patient was found to be in distress and subsequently transported to [facility] for further care and evaluation of the aforementioned symptoms. The patient was seen and evaluated in the emergency department. All lab and imaging studies reviewed. Patient found to have a pulse oximetry of 88% on room air which is consistent with acute hypoxemic respiratory failure. Patient also found to have pneumonia complicated by sepsis. Patient admitted to medical floor and initiated on pneumonia protocol, sepsis protocol as well as coronavirus protocol. Patient was initiated on azithromycin and Rocephin in addition to IV fluid resuscitation. Patient also required supplemental oxygen in the setting of acute hypoxic respiratory failure secondary to community- acquired pneumonia. Patient was found to be unremarkable for COVID-19, and the COVID-19 protocol was discontinued. Patient was transitioned to p.o. Levaquin 500 mg daily to complete a 5-day antibiotic course. The patient will be discharging with home hospice per conversation with the patient's son Rene. Patient is medically clear for discharge. Disposition: 50 HOSPICE/HOME Final Discharge Diagnosis (Prints w/discharge instructions): Community-acquired pneumonia, acute hypoxic respiratory failure, sepsis, Alzheimer's dementia, debility Time spent for discharge: 45 min Core Measure Documentation - Palliative Care Palliative Care/ Comfort Measures: Hospice Care - Core Measures Any of the following diagnoses?: none Exam - Constitutional Vitals: Temp Pulse Resp BP Pulse Ox 97.7 F 66 12 128/55 98 08/17/21 05:01 08/17/21 05:01 08/17/21 05:01 08/17/21 05:25 08/17/21 05:54 General appearance: Present: no acute distress, cachectic - EENT Eyes: Present: PERRL, EOM intact ENT: hearing intact, clear oral mucosa - Neck Neck: Present: supple, normal ROM - Respiratory Respiratory effort: normal Respiratory: bilateral: diminished - Cardiovascular Rhythm: regular Heart Sounds: Present: S1 & S2 - Extremities Extremities: no ischemia, pulses intact, pulses symmetrical, No edema, normal temperature, normal color Peripheral Pulses: within normal limits - Abdominal General gastrointestinal: Present: soft, non-tender, non-distended, normal bowel sounds Male genitourinary: Present: deferred - Rectal Rectal Exam: deferred - Integumentary Integumentary: Present: clear, warm, dry - Musculoskeletal Musculoskeletal: generalized weakness - Psychiatric Psychiatric: other (Avoidant + does not like physical contact by strangers) - Neurologic Neurologic: other (Unable to assess given patient's dementia) - Allied Health Allied health notes reviewed: nursing Plan Activity: no restrictions Diet: regular Additional Instructions: 81 YO Male with Alzheimer's Dementia with a FAST Score of 7D, HTN, Debility presents to ED for evaluation. The patient is confused with diminished cognition and is unable to provide history. Patient history provided by EMS staff, ED staff, as well as the patient's son who is at bedside during exam and interview. As per son "he is getting weaker by the day". Patient son reports that over the past 2 months the patient has experienced increased weakness, diminished oral intake, weight loss, and memory loss. Patient is currently bedbound, nonambulatory, and has increasing difficulty recognizing family members. Patient tried to get out of bed today and subsequently fell striking his head on the floor with subsequent loss of consciousness. EMS was notified and upon arrival the patient was found to be in distress and subsequently transported to [facility] for further care and evaluation of the aforementioned symptoms. The patient was seen and evaluated in the emergency department. All lab and imaging studies reviewed. Patient found to have a pulse oximetry of 88% on room air which is consistent with acute hypoxemic respiratory failure. Patient also found to have pneumonia complicated by sepsis. Patient admitted to medical floor and initiated on pneumonia protocol, sepsis protocol as well as coronavirus protocol. Patient was initiated on azithromycin and Rocephin in addition to IV fluid resuscitation. Patient also required supplemental oxygen in the setting of acute hypoxic respiratory failure secondary to community-acquired pneumonia. Patient was found to be unremarkable for COVID-19, and the COVID-19 protocol was discontinued. Patient was transitioned to p.o. Levaquin 500 mg daily to complete a 5-day antibiotic course. The patient will be discharging with home hospice per conversation with the patient's son Rene. Patient is medically clear for discharge. Care Plan Goals: Patient is medically clear for discharge. Assessment: 81 YO Male with Alzheimer's Dementia with a FAST Score of 7D, HTN, Debility presents to ED for evaluation. The patient is confused with diminished cognition and is unable to provide history. Patient history provided by EMS staff, ED staff, as well as the patient's son who is at bedside during exam and interview. As per son "he is getting weaker by the day". Patient son reports that over the past 2 months the patient has experienced increased weakness, diminished oral intake, weight loss, and memory loss. Patient is currently bedbound, nonambulatory, and has increasing difficulty recognizing family members. Patient tried to get out of bed today and subsequently fell striking his head on the floor with subsequent loss of consciousness. EMS was notified and upon arrival the patient was found to be in distress and subsequently transported to [facility] for further care and evaluation of the aforementioned symptoms. The patient was seen and evaluated in the emergency department. All lab and imaging studies reviewed. Patient found to have a pulse oximetry of 88% on room air which is consistent with acute hypoxemic respiratory failure. Patient also found to have pneumonia complicated by sepsis. Patient admitted to medical floor and initiated on pneumonia protocol, sepsis protocol as well as coronavirus protocol. Patient was initiated on azithromycin and Rocephin in addition to IV fluid resuscitation. Patient also required supplemental oxygen in the setting of acute hypoxic respiratory failure secondary to community- acquired pneumonia. Patient was found to be unremarkable for COVID-19, and the COVID-19 protocol was discontinued. Patient was transitioned to p.o. Levaquin 500 mg daily to complete a 5-day antibiotic course. The patient will be discharging with home hospice per conversation with the patient's son Rene. Patient is medically clear for discharge. Follow up with: PRIMARY CARE, [Primary Care Provider] - 3-5 Days Prescriptions: levoFLOXacin [Levaquin TAB] 500 mg PO QDAY #3 tablet
[2021-08-17 14:33] LABS: Hematocrit 33.9 % (35.5-45.6); Hemoglobin 10.9 gm/dl (11.8-15.2); Mean Corpuscular HGB Conc 32 % (32-34); Mean Corpuscular Volume 98 fl (84-94); Platelet Count 313 K/mm3 (140-440); Red Blood Count 3.47 M/mm3 (3.65-5.03); Red Cell Distribution Width 14.2 % (13.2-15.2)
[2021-08-17 14:45] LABS: BUN/Creatinine Ratio 20; Blood Urea Nitrogen 16 mg/dL (9-20); Calcium 8.7 mg/dL (8.4-10.2); Hemolysis Index 1
[2021-08-17 15:55] LABS: Monocytes % (Manual) 0 % (0.0-7.3); Total Cells Counted 100
[2021-08-17 15:56] LABS: Basophils % (Manual) 0 % (0.0-1.8); Eosinophils % (Manual) 0 % (0.0-4.3); Platelet Estimate Consistent w Auto; RBC Morphology Normal
[2021-08-17] MEDS: cefTRIAXone/NS 2 GM/100 ML 2 GM/100 ML BAG IV SCH (17:51)
[2021-08-17] MEDS: amLODIPine 10 MG TAB PO SCH (21:14)
[2021-08-17] MEDS: LOSARTAN 50 MG TAB PO SCH (21:14)
[2021-08-18] MEDS: ASPIRIN EC 81 MG TAB PO SCH (13:34)
[2021-08-18] MEDS: AZITHROMYCIN 250 MG TAB PO SCH (13:34)
[2021-08-18] MEDS: CHOLECALCIFEROL (VIT D3) 1000 UNIT (25 mcg) TAB PO SCH (13:35)
[2021-08-18] MEDS: HEPARIN 5,000 UNIT/1 ML VIAL SUB-Q SCH (13:35)
[2021-08-18 13:45] VITALS: BP 136/98
== END 2021-08-18 15:00 | disposition hospice, home (50) | DRG 871 ==
LOC: ED 14:57 → 3A 19:54
PROVIDERS: ADMIT Internal Medicine; ATTEND Student in an Organized Health Care Education/Training Program
PROC: 06HY33Z Insertion of Infusion Device into Lower Vein, Percutaneous Approach (ICD-10-PCS; principal; 2021-08-15)
PROC: B54BZZA Ultrasonography of Right Lower Extremity Veins, Guidance (ICD-10-PCS; 2021-08-15)
DX: A41.9 Sepsis, unspecified organism (principal); J96.01 Acute respiratory failure with hypoxia; J18.9 Pneumonia, unspecified organism; F02.81 Dementia in other diseases classified elsewhere, unspecified severity, with behavioral disturbance; G30.9 Alzheimer's disease, unspecified; Z20.822 Contact with and (suspected) exposure to COVID-19; Z90.49 Acquired absence of other specified parts of digestive tract; Z79.82 Long term (current) use of aspirin; Z79.899 Other long term (current) drug therapy; Z82.49 Family history of ischemic heart disease and other diseases of the circulatory system; I10 Essential (primary) hypertension; Z74.01 Bed confinement status
CPT/HCPCS: 36415; 70450; 71045; 80048; 80320; 81001; 82140; 82550; 84443; 84484; 85007; 85025; 85610; 85730; 86850; 86900; 86901; 87040; 87076; 87086; 87186; 93005; G0378; J3490; G0480; J0692; J0696; J1644; J2060; J2920; J7030; U0003

== ENCOUNTER 2021-11-29 11:24 | Inpatient (IN) | payer MEDICARE ==
--- NOTE | 2021-11-29 11:53 | Emergency Department Report ---
HPI - General Chief Complaint: Neuro Symptoms/Deficit PUI?: No Time Seen by Provider: 11/29/21 11:49 - HPI HPI: 81-year-old male with history of dementia, minimally verbal at baseline per EMSs report, with EMS for stating "family member states sometimes he talks sometimes he does not" hypertension, brought in for evaluation of possible stroke. Patient last last seen normal at 8 AM. Caregiver stated that between 8 and 9 AM she went to see the patient and found him "slumped over and drooling." EMS states that upon their arrival, the patient was awake, but he will not verbalize anything to them. He is following commands and has "strong motor strength in his upper and lower extremities." No further information provided. Patient denies that he is any pain at this time. ED Past Medical Hx - Past Medical History Previous Medical History?: Yes Hx Hypertension: Yes Hx Dementia: Yes - Surgical History Hx Appendectomy: Yes (approx 40 yrs ago per pt) - Social History Smoking Status: Never Smoker - Medications Home Medications: Home Medications Medication Instructions Recorded Confirmed Last Taken Type amLODIPine 10 mg PO HS #30 tablet 05/09/08/16/21 2 Days Ago Rx ~08/14/21 Losartan Potassium 100 mg PO QDAY 08/16/21 08/16/21 2 Days Ago History ~08/14/21 Memantine/Donepezil (Nf) [Namzaric 1 cap PO QHS 08/16/21 08/16/21 Unknown History 28 mg-10 mg (Nf)] levoFLOXacin [Levaquin TAB] 500 mg PO QDAY #3 tablet 08/17/21 Unknown Rx ED Review of Systems ROS: Stated complaint: POSS CVA Other details as noted in HPI. Remainder of ROS neg Comment: All other systems reviewed and negative Physical Exam - Physical Exam General: Gen: pt is well appearing, no acute distress HEENT: Normocephalic atraumatic pupils equally round and reactive to light extraocular muscles intact sclera anicteric Neck: Full range of motion, no midline spinal tenderness palpation, no JVD, no carotid bruits, no nuchal rigidity CVS: S1-S2 regular rate and rhythm with no gallops rubs or murmurs, chest wall nontender Pulmonary: Clear to auscultation bilaterally, no wheezes rales or rhonchi Abdomen: Soft nondistended nontender no guarding or rebound tenderness, no palpable deformities or step-offs, normal active bowel sounds, no hepat osplenomegaly, no pulsatile masses : Deferred Extremities: No cyanosis no clubbing no edema, intact distal peripheral pulses, Integumentary: Skin normal, no petechia no purpura no abscess no lacerations no evidence of trauma no evidence of infection Neuro: Patient is awake alert and oriented to person place time situation, mentating well, cranial nerves II through XII intact, no focal neurodeficits, sensation grossly tact Psych: Calm cooperative, mood affect normal ED Medical Decision Making - Lab Data Result diagrams: 11/29/21 12:19 11/29/21 12:19 - EKG Data -: EKG Interpreted by Me EKG shows normal: sinus rhythm - EKG Data When compared to previous EKG there are: no significant change Interpretation: no acute changes - Radiology Data Radiology results: report reviewed - Medical Decision Making 81-year-old male with multiple medical comorbidities brought in by EMS as questionable stroke notification. Vital signs stable. NIH score is 2. Labs and diagnostic imaging grossly unremarkable for any acute pathology. I reviewed the documented evaluation by the stroke neurologist, Dr. Acevedo. Per his verbal report, he will amend his documented evaluation of as the current documented one on file is not reflective of this specific patient. Per his verbal report, this note was written in error up where he will amend his note. He states that the patient is not a tPA candidate but he recommends inpatient admission and MRI for further work-up. The patient was accepted for admission by Dr. Preciado to the hospitalist service, for further management. Critical Care Time: No Critical care attestation.: If time is entered above; I have spent that time in minutes in the direct care of this critically ill patient, excluding procedure time. ED Disposition Clinical Impression: Altered mental status, Unresponsiveness Disposition: ADMITTED INPATIENT Is pt being admited?: Yes Does the pt Need Aspirin: No Condition: Stable
--- NOTE | 2021-11-29 12:03 | Cat Scan Report ---
CT HEAD WITHOUT CONTRAST INDICATION / CLINICAL INFORMATION: STROKE. History obtained from Dr. Gtz is altered mental status. History of dementia. TECHNIQUE: All CT scans at this location are performed using CT dose reduction for ALARA by means of automated e xposure control. COMPARISON: None available. FINDINGS: HEMORRHAGE: No evidence of intracranial hemorrhage or extra-axial fluid collection. EXTRA-AXIAL SPACES: Cortical sulci and sylvian fissures are enlarged reflecting a degree of parenchym al volume loss which is within normal limits for the patient's age 81 years. Basilar cisterns have an unremarkable appearance. VENTRICULAR SYSTEM: The third and lateral ventricles are enlarged out of proportion to the cortical s ulci. This probably reflects the presence of central greater than cortical atrophy. CEREBRAL PARENCHYMA: Periventricular and deep white matter lucency is observed. This is probably seco ndary to microvascular ischemic change. There is no indication of recent infarction. No areas of ence phalomalacia are identified. MIDLINE SHIFT OR HERNIATION: There is no mass effect. CEREBELLUM / BRAINSTEM: Brainstem and cerebellum have an unremarkable appearance. MIDLINE STRUCTURES:No abnormalities of the pituitary gland or pineal region are observed INTRACRANIAL VESSELS:Calcified atherosclerotic plaque is present along the course of the cavernous se gments of both internal carotid arteries. Similar findings are seen at the distal vertebral arteries. CRANIOCERVICAL JUNCTION:No abnormality ORBITS: visualized portions of the orbits have an unremarkable appearance. SOFT TISSUES of HEAD: No significant abnormality. CALVARIUM: Evaluation of bone windows reveals no abnormalities. PARANASAL SINUSES / MASTOID AIR CELLS: Paranasal sinuses are free from inflammatory mucosal disease. Mastoid air cells are normally pneumatized. ADDITIONAL FINDINGS: None. IMPRESSION: 1. Age-related atrophy and microvascular ischemic change. 2. No acute intracranial abnormality. CODE STROKE: Time of Communication (FISCAL ECONOMIST/CDT): 1056 Central standard time Licensed Practitioner Receiving Report: Dr. Gtz Signer Name: Jurgen Singh MD Signed: 11/29/2021 11:58 AM Workstation Name: [email or web address]
--- NOTE | 2021-11-29 12:11 | Emergency Department Report ---
Blank Doc - Documentation Documentation: [facility] Consult Note # Demographics Consult Type: General Neurology Patient Location: Inpatient First Name: Donna Last Name: Luis Date of : 01/23/1931 Age: 89 Facility: [facility] Time of Initial Page (Eastern Time): 11/29/2021, 11:31 Time of Return Call (Eastern Time): 11/29/2021, 11:31 # HPI History: 89 yo woman with prior strokes , CAD, HTN, pacemaker, Trigeminal neuralgia, presented to hospital on 11/25 with confusion and disorientation with BP elevated 169/109. Upon arrival to ER, patient had generalized tonic/clonic seizure. Patient also being seen by cardiology for paroxysmal atrial fibrillation, she is not on anticoagulation. She is being treated for acute cystitis and on antibiotics. Patient is on trileptal, gabapentin, duloxetine. Patient seen by inpatient neurology, EEG ordered, MRI brain ordered, and started on keppra # Scores Time of exam and NIHSS ( Time): 11/29/2021, 11:41 Level of Consciousness 1a: [0] = Alert; keenly responsive LOC Questions 1b: [2] = Answers neither correctly LOC Commands 1c: [0] = Performs both tasks correctly Best Gaze 2: [0] = Normal Visual 3: [0] = No visual loss Facial Palsy 4: [0] = Normal symmetrical movements Motor Arm Left 5a: [0] = No drift Motor Arm Right 5b: [0] = No drift Motor Leg Left 6a: [0] = No drift Motor Leg Right 6b: [0] = No drift Limb Ataxia 7: [0] = Absent Sensory 8: [0] = Normal Best Language 9: [0] = No aphasia Dysarthria 10: [0] = Normal Extinction and Inattention 11: [0] = No abnormality NIHSS Total: 2 # Data Head CT: no bleed stable ct head. # Assessment Impression: improving encephalopathy seizure UTI, possibly may have induced seizure # Plan Other: If patient has any neurological deterioration please call me back immediately Additional Recommendations: continue current medications continue antibiotics for UTI. Ok to start disposition planning, but will need some help with medications at home. Disposition: continue admission # Logistics Telemedicine: Interactive 2 way audio and visual telecommunication technology was utilized during this visit # Demographics First Name: Donna Last Name: Luis Facility: [facility]
--- NOTE | 2021-11-29 12:16 | XRay Report ---
CHEST 1 VIEW 11/29/2021 11:09 AM INDICATION / CLINICAL INFORMATION: altered mental statu. COMPARISON: Radiograph 08/15/2021 FINDINGS: SUPPORT DEVICES: None. HEART / MEDIASTINUM: No significant abnormality. Mild elevation of the right hemidiaphragm. LUNGS / PLEURA: No significant pulmonary or pleural abnormality. No pneumothorax. ADDITIONAL FINDINGS: Partially visualized from air-filled loops of colon within the right hemiabdomen . IMPRESSION: 1. No acute findings. Signer Name: Thai Barnett MD Signed: 11/29/2021 12:12 PM Workstation Name: [email or web address]
[2021-11-29 12:58] LABS: Basophils # (Auto) 0.1 K/mm3 (0.0-0.1); Basophils % (Auto) 0.7 % (0.0-1.8); Eosinophils % (Auto) 0.1 % (0.0-4.3); Hematocrit 37.7 % (35.5-45.6); Hemoglobin 12.3 gm/dl (11.8-15.2); Lymphocytes # (Auto) 0.8 K/mm3 (1.2-5.4); Lymphocytes % (Auto) 9.1 % (13.4-35.0); Mean Corpuscular HGB Conc 33 % (32-34); Mean Corpuscular Volume 100 fl (84-94); Monocytes # (Auto) 0.9 K/mm3 (0.0-0.8); Monocytes % (Auto) 10.3 % (0.0-7.3); Platelet Count 266 K/mm3 (140-440); Red Blood Count 3.77 M/mm3 (3.65-5.03); Red Cell Distribution Width 14.4 % (13.2-15.2)
[2021-11-29 13:18] LABS: Alanine Aminotransferase 9 units/L (7-56); Albumin 3.5 g/dL (3.9-5); BUN/Creatinine Ratio 21; Blood Urea Nitrogen 27 mg/dL (9-20); Calcium 8.7 mg/dL (8.4-10.2); Hemolysis Index 50
[2021-11-29] MEDS ORDERED: SODIUM CHLORIDE 0.9% 1000 ML 1,000 ML IV ONE (15:15)
[2021-11-29] MEDS ORDERED: LORazepam 2 MG/ML VIAL IV ONE (16:15)
--- NOTE | 2021-11-29 17:52 | Cat Scan Report ---
CT angio neck INDICATION / CLINICAL INFORMATION: 81 years Male; dementia, altered mental status, pt not talking 100ml of [id number]. TECHNIQUE: Thin cut axial images obtained through the head during IV bolus contrast administration. S agittal, coronal, and 3 plane MIP reconstructions performed by the technologist. NASCET type criteria used evaluate stenoses. All CT scans at this location are performed using CT dose reduction for ALAR A by means of automated exposure control. . COMPARISON: None available. FINDINGS: ARCH: Normal aortic arch branching suggested. CAROTID ARTERIES: The visualized common and internal carotid arteries are widely patent. Relatively m ild atherosclerotic disease is seen in the carotid bifurcation region on the right. VERTEBRAL ARTERIES: Left dominant vertebral system seen. Scattered areas of narrowing are seen in the extracranial, nondominant right vertebral artery, particularly at the C5-6 level where findings are moderate to marked in degree. The left vertebral artery appears to be widely patent. ADDITIONAL FINDINGS: Concerning the cervical spine, multilevel disc space narrowing is seen with ante rior spondylosis. Mild to moderate osseous foraminal narrowing seen on the left C6-7. Significant ant erior spondylosis seen at C5-6, C6-7, and C4-5 borderline canal narrowing seen at C3-4 and C4-5. Mild to moderate mucosal thickening seen in the mastoids. There is no coalescence of air cells apprec iated. IMPRESSION: Areas of narrowing in the nondominant right vertebral artery, as described above. Signer Name: Sameer Reyna MD, III Signed: 11/29/2021 5:48 PM Workstation Name: [id number]
--- NOTE | 2021-11-29 18:10 | Cat Scan Report ---
CT angio head INDICATION / CLINICAL INFORMATION: 81 years Male; dementia, altered mental status, pt not talking 100ml of [id number]. TECHNIQUE: Thin cut axial images obtained through the head during IV bolus contrast administration. S agittal, coronal, and 3 plane MIP reconstructions performed by the technologist. NASCET type criteria used evaluate stenoses. Automated exposure control utilized for radiation reduction purposes. . COMPARISON: None available. FINDINGS: INTERNAL CAROTID ARTERIES: No significant narrowing appreciated. VERTEBROBASILAR SYSTEM: Left dominant vertebral system seen. The left vertebral artery is widely thompson nt. The nondominant right vertebral artery demonstrates multiple areas of [id number] narrowing intr acranially. DISTAL BRANCHES: Distal branches of the anterior, middle, and posterior cerebral arteries are fairly symmetric in appearance and number. ANEURYSM: None identified. ADDITIONAL FINDINGS: Remainder of the surrounding soft tissues are grossly normal. IMPRESSION: 1. Areas of narrowing seen in the nondominant right vertebral artery, as described above. Signer Name: Sameer Reyna MD, III Signed: 11/29/2021 6:05 PM Workstation Name: [email or web address] [id number]
[2021-11-29 19:03] LABS: INR 0.95 (0.87-1.13)
[2021-11-29 19:04] LABS: Partial Thromboplastin Time 32.5 Sec. (24.2-36.6)
[2021-11-29 19:09] LABS: Bilirubin,Urine NEG (Negative); Blood,Urine NEG (Negative); Color,Urine Yellow (Yellow); Urobilinogen,Urine < 2 mg/dL (<2.0)
[2021-11-29 19:10] LABS: Mucus,Urine FEW /HPF
--- NOTE | 2021-11-29 20:13 | History and Physical Report ---
History of Present Illness Chief complaint: He got weak all of a sudden History of present illness: 81 YO Male with Alzheimer's Dementia with a FAST Score of 7D, HTN, Debility presents to ED for evaluation. The patient is confused with diminished cognition and is unable to provide history. Patient history provided by EMS staff, ED staff, as well as the patient's son who is at bedside during exam and interview. As per son "he got a lot weaker today". Patient son reports that the patient was in his usual state of health at bedtime at approximately 2200 hrs. Upon awakening from sleep around 0900 hrs. the patient was found "slumped over and drooling. EMS was notified and upon arrival the patient was found to be in distress with a new focal neurologic deficit. A code stroke was called and the patient was transported to [facility] for further care and evaluation of the aforementioned symptoms. The patient was seen and evaluated in the emergency department. All lab and imaging studies reviewed. The patient was found to have clinical symptoms consistent with CVA. The patient was admitted to medical floor and initiated on CVA protocol. Patient admitted to medical floor due to increased risk of worsening symptoms and for medical stabilization. Patient has diminished cognition but has a positive gag reflex and is able to protect his airway without difficulty. Prior admission on 08/15/2021 reviewed. All medication listed at time of admission has been reconciled. Advanced care planning conducted in ED. No reports of fever, chills, chest pain, palpitation, productive cough, skin rash, recent contact, known exposure to COVID-19. Past History Past Medical History: hypertension, other (See HPI) Past Surgical History: appendectomy Social history: single, lives with family. denies: smoking, alcohol abuse, prescription drug abuse Family history: hypertension Medications and Allergies Allergies Allergy/AdvReac Type Severity Reaction Status Date / Time No Known Allergies Allergy Verified 11/29/21 11:29 Home Medications Medication Instructions Recorded Confirmed Last Taken Type amLODIPine 10 mg PO HS #30 tablet 05/10/15 08/16/21 2 Days Ago Rx ~08/14/21 Losartan Potassium 100 mg PO QDAY 08/16/21 08/16/21 2 Days Ago History ~08/14/21 Memantine/Donepezil (Nf) [Namzaric 1 cap PO QHS 08/16/21 08/16/21 Unknown History 28 mg-10 mg (Nf)] levoFLOXacin [Levaquin TAB] 500 mg PO QDAY #3 tablet 08/17/21 Unknown Rx Review of Systems ROS unobtainable: due to mental status Exam - Constitutional Vitals: Temp Pulse Resp BP Pulse Ox 98.0 F 74 14 151/79 97 11/29/21 16:04 11/29/21 18:26 11/29/21 18:26 11/29/21 18:26 11/29/21 18:26 General appearance: Present: mild distress - EENT Eyes: Present: PERRL ENT: clear oral mucosa, hearing decreased - Neck Neck: Present: supple, normal ROM - Respiratory Respiratory effort: normal Respiratory: bilateral: diminished - Cardiovascular Heart Sounds: Present: S1 & S2. Absent: rub, click - Extremities Extremities: pulses symmetrical, No edema Peripheral Pulses: within normal limits - Abdominal General gastrointestinal: Present: soft, non-tender, non-distended, normal bowel sounds Male genitourinary: Present: normal - Integumentary Integumentary: Present: clear, dry - Musculoskeletal Musculoskeletal: generalized weakness - Psychiatric Psychiatric: no appropriate mood/affect, no intact judgment & insight, no memory intact - Neurologic Neurologic: CNII-XII intact, moves all extremities, no gait normal HEART Score - HEART Score Troponin: Troponin T 0.029 ng/mL (0.00-0.029) 11/29/21 12:19 Results - Labs CBC & Chem 7: 11/29/21 12:19 11/29/21 12:19 Labs: Abnormal lab results 11/29/21 11/29/21 Range/Units 12:19 12:19 MCV 100 H (84-94) fl MCH 33 H (28-32) pg Lymph % (Auto) 9.1 L (13.4-35.0) % [place] % (Auto) 10.3 H (0.0-7.3) % Lymph # (Auto) 0.8 L (1.2-5.4) K/mm3 [place] # (Auto) 0.9 H (0.0-0.8) K/mm3 Seg Neutrophils % 79.8 H (40.0-70.0) % Carbon Dioxide 21 L (22-30) mmol/L BUN 27 H (9-20) mg/dL Glucose 120 H (75-100) mg/dL Albumin 3.5 L (3.9-5) g/dL Assessment and Plan - Patient Problems (1) CVA (cerebral vascular accident) Current Visit: Yes Status: Acute Plan to address problem: CVA protocol: CTA, neuro check, seizure cards, aspirin precaution, fall precaution, lipid panel, statin therapy, antiplatelet therapy, supportive care, teleneurology consulted. Physical therapy consulted, Occupational Therapy consulted, speech therapy consulted. Echocardiogram, carotid Doppler. (2) Alzheimer's dementia Current Visit: No Status: Acute Qualifiers: Dementia behavioral disturbance: with behavioral disturbance Plan to address problem: Patient has vascular 70, supportive care, continue medical management. (3) Hypertension Current Visit: No Status: Chronic Qualifiers: Hypertension type: primary hypertension Qualified Code(s): I10 - Essential (primary) hypertension Plan to address problem: Monitor blood pressure every shift, continue medical management. (4) DVT prophylaxis Current Visit: No Status: Acute Plan to address problem: SCD to bilateral lower extremities while in bed (5) Advance care planning Current Visit: No Status: Acute Plan to address problem: Disease education done, care plan discussed, diagnoses discussed, prognosis discussed, patient is full code, +30 minutes. (6) Preventative health care Current Visit: Yes Status: Acute Plan to address problem: Patient family counseled regarding home safety precautions, prognosis, outpatient follow-up with primary care physician for all age and risk factor appropriate screening test. +30 minutes.
[2021-11-29] MEDS ORDERED: ACETAMINOPHEN 325 MG TAB PO PRN (20:15)
[2021-11-29] MEDS ORDERED: MAGNESIUM HYDROXIDE (MOM) ORAL LIQD UDC PO PRN (20:15)
[2021-11-29] MEDS ORDERED: PROMETHAZINE 25 MG RECT SUPP PR PRN (20:15)
[2021-11-29] MEDS ORDERED: HYDROmorphone 0.5 MG/0.5 ML INJ IV PRN (20:15)
[2021-11-29] MEDS ORDERED: ONDANSETRON 4 MG/2 ML INJ IV PRN (20:15)
[2021-11-29] MEDS ORDERED: METOCLOPRAMIDE 10 MG TAB PO PRN (20:15)
[2021-11-29] MEDS ORDERED: oxyCODONE /ACETAMINOPHEN 5-325MG TAB PO PRN (20:15)
[2021-11-29] MEDS ORDERED: DONEPEZIL PO SCH (22:00)
[2021-11-29] MEDS ORDERED: MEMANTINE PO SCH (22:00)
--- NOTE | 2021-11-30 11:11 | Progress Note ---
Assessment and Plan Assessment and plan: 81 YO Male with Alzheimer's Dementia with a FAST Score of 7D, HTN, Debility presents to ED for evaluation worsening weakness. Patient son reports that the patient was in his usual state of health at bedtime at approximately 2200 hrs. Upon awakening from sleep around 0900 hrs. the patient was found "slumped over and drooling. EMS was notified and upon arrival the patient was found to be in distress with a new focal neurologic deficit. A code stroke was called and the patient was transported to [facility] for further care and evaluation of the aforementioned symptoms. The patient was seen and evaluated in the emergency department. All lab and imaging studies reviewed. The patient was found to have clinical symptoms consistent with CVA. The patient was admitted to medical floor and initiated on CVA protocol. Acute CVA Alzheimer's dementia Hypertension 11/30/2021. CTA of the head and neck reveals scattered areas of narrowing seen in the extracranial nondominant right vertebral artery particularly at the level of C5-6 of moderate degree. Echocardiogram reveals left ventricular systolic function normal with EF 55-60%. Mild diastolic dysfunction. Carotid Dopplers pending. Neurology consultation pending. Await PT/OT evaluation History Interval history: No new issues overnight. Hospitalist Physical - Constitutional Vitals: Temp Pulse Resp BP Pulse Ox 98.2 F 73 16 160/68 95 11/30/21 08:00 11/30/21 08:00 11/30/21 08:00 11/30/21 08:00 11/30/21 08:00 General appearance: Present: mild distress - EENT Eyes: Present: PERRL, EOM intact ENT: hearing intact, clear oral mucosa, dentition normal - Neck Neck: Present: supple, normal ROM - Respiratory Respiratory effort: normal Respiratory: bilateral: CTA - Cardiovascular Rhythm: regular Heart Sounds: Present: S1 & S2. Absent: gallop, rub - Extremities Extremities: no ischemia, No edema, Full ROM - Abdominal General gastrointestinal: soft, non-tender, non-distended, normal bowel sounds - Integumentary Integumentary: Present: clear, warm, dry - Neurologic Neurologic: CNII-XII intact, moves all extremities HEART Score - HEART Score Troponin: Troponin T 0.029 ng/mL (0.00-0.029) 11/29/21 12:19 Results - Labs CBC & Chem 7: 11/29/21 12:19 11/29/21 12:19 Labs: Laboratory Last Values WBC 8.6 K/mm3 (4.5-11.0) 11/29/21 12:19 RBC 3.77 M/mm3 (3.65-5.03) 11/29/21 12:19 Hgb 12.3 gm/dl (11.8-15.2) 11/29/21 12:19 Hct 37.7 % (35.5-45.6) 11/29/21 12:19 MCV 100 fl (84-94) H 11/29/21 12:19 MCH 33 pg (28-32) H 11/29/21 12:19 MCHC 33 % (32-34) 11/29/21 12:19 RDW 14.4 % (13.2-15.2) 11/29/21 12:19 Plt Count 266 K/mm3 (140-440) 11/29/21 12:19 Lymph % (Auto) 9.1 % (13.4-35.0) L 11/29/21 12:19 [place] % (Auto) 10.3 % (0.0-7.3) H 11/29/21 12:19 Eos % (Auto) 0.1 % (0.0-4.3) 11/29/21 12:19 Baso % (Auto) 0.7 % (0.0-1.8) 11/29/21 12:19 Lymph # (Auto) 0.8 K/mm3 (1.2-5.4) L 11/29/21 12:19 [place] # (Auto) 0.9 K/mm3 (0.0-0.8) H 11/29/21 12:19 Eos # (Auto) 0.0 K/mm3 (0.0-0.4) 11/29/21 12:19 Baso # (Auto) 0.1 K/mm3 (0.0-0.1) 11/29/21 12:19 Seg Neutrophils % 79.8 % (40.0-70.0) H 11/29/21 12:19 Seg Neutrophils # 6.9 K/mm3 (1.8-7.7) 11/29/21 12:19 PT 14.0 Sec. (12.2-14.9) 11/29/21 18:01 INR 0.95 (0.87-1.13) 11/29/21 18:01 APTT 32.5 Sec. (24.2-36.6) 11/29/21 18:01 Sodium 141 mmol/L (137-145) 11/29/21 12:19 Potassium 4.3 mmol/L (3.6-5.0) 11/29/21 12:19 Chloride 103.9 mmol/L (98-107) 11/29/21 12:19 Carbon Dioxide 21 mmol/L (22-30) L 11/29/21 12:19 Anion Gap 20 mmol/L 11/29/21 12:19 BUN 27 mg/dL (9-20) H 11/29/21 12:19 Creatinine 1.3 mg/dL (0.8-1.3) 11/29/21 12:19 Estimated GFR > 60 ml/min 11/29/21 12:19 BUN/Creatinine Ratio 21 % 11/29/21 12:19 Glucose 120 mg/dL (75-100) H 11/29/21 12:19 POC Glucose 120 mg/dL (70-105) H 11/30/21 00:05 Calcium 8.7 mg/dL (8.4-10.2) 11/29/21 12:19 Total Bilirubin 0.40 mg/dL (0.1-1.2) 11/29/21 12:19 AST 24 units/L (5-40) 11/29/21 12:19 ALT 9 units/L (7-56) 11/29/21 12:19 Alkaline Phosphatase 108 units/L (35-129) 11/29/21 12:19 Troponin T 0.029 ng/mL (0.00-0.029) 11/29/21 12:19 NT-Pro-B Natriuret Pep 632.5 pg/mL (0-900) 11/29/21 20:29 Total Protein 7.2 g/dL (6.3-8.2) 11/29/21 12:19 Albumin 3.5 g/dL (3.9-5) L 11/29/21 12:19 Albumin/Globulin Ratio 0.9 % 11/29/21 12:19 Urine Color Yellow (Yellow) 11/29/21 16:52 Urine Turbidity Clear (Clear) 11/29/21 16:52 Urine pH 7.0 (5.0-7.0) 11/29/21 16:52 Ur Specific [place] 1.024 (1.003-1.030) 11/29/21 16:52 Urine Protein 100 mg/dl mg/dL (Negative) 11/29/21 16:52 Urine Glucose (UA) Neg mg/dL (Negative) 11/29/21 16:52 Urine Ketones Neg mg/dL (Negative) 11/29/21 16:52 Urine Blood Neg (Negative) 11/29/21 16:52 Urine Nitrite Neg (Negative) 11/29/21 16:52 Urine Bilirubin Neg (Negative) 11/29/21 16:52 Urine Urobilinogen < 2 mg/dL (<2.0) 11/29/21 16:52 Ur Leukocyte Esterase Neg (Negative) 11/29/21 16:52 Urine WBC (Auto) 1.0 /HPF (0.0-6.0) 11/29/21 16:52 Urine RBC (Auto) 1.0 /HPF (0.0-6.0) 11/29/21 16:52 U Epithel Cells (Auto) < 1.0 /HPF (0-13.0) 11/29/21 16:52 Urine Mucus Few /HPF 11/29/21 16:52 Ralph/IV: Voiding Method Condom Catheter Active Medications - Current Medications Current Medications: Generic Name Dose Route Start Last Admin Trade Name Freq PRN Reason Stop Dose Admin Acetaminophen 650 mg 11/29/21 20:15 Acetaminophen 325 Mg Tab PO Q4H PRN Pain, Mild (1-3) Aspirin 325 mg 11/30/21 10:00 Aspirin 325 Mg Tab PO QDAY [facility] Atorvastatin Calcium 40 mg 11/29/21 22:00 11/30/21 02:16 Atorvastatin 40 Mg Tab PO Not Given QHS RITA Bisacodyl 10 mg 11/29/21 20:15 Bisacodyl 10 Mg Rect Supp OR QDAY PRN Constipation Hydromorphone HCl 0.5 mg 11/29/21 20:15 Hydromorphone 0.5 Mg/0.5 Ml Inj IV Q23H PRN Pain , Severe (7-10) Magnesium Hydroxide 30 ml 11/29/21 20:15 Magnesium Hydroxide (Mom) Oral Liqd Udc PO Q4H PRN Constipation Metoclopramide HCl 10 mg 11/29/21 20:15 Metoclopramide 10 Mg Tab PO Q6H PRN Nausea And Vomiting Miscellaneous Medication 1 cap 11/29/21 22:00 Memantine/Donepezil (Nf) PO QHS RITA Ondansetron HCl 4 mg 11/29/21 20:15 Ondansetron 4 Mg/2 Ml Inj IV Q8H PRN Nausea And Vomiting Oxycodone/Acetaminophen 1 tab 11/29/21 20:15 Oxycodone /Acetaminophen 5-325mg Tab PO Q6H PRN Pain, Moderate (4-6) Promethazine HCl 25 mg 11/29/21 20:15 Promethazine 25 Mg Rect Supp OR Q6H PRN Nausea And Vomiting Sodium Chloride 10 ml 11/29/21 20:45 Sodium Chloride 0.9% 10 Ml Flush Syringe IV PRN PRN LINE FLUSH
[2021-11-30] MEDS: ASPIRIN 325 MG TAB PO SCH (13:04)
--- NOTE | 2021-11-30 13:50 | Vascular Lab Report ---
DUPLEX DOPPLER ULTRASOUND CAROTID, BILATERAL INDICATION / CLINICAL INFORMATION: stroke. COMPARISON: CTA neck 11/29/2021. FINDINGS: RIGHT CAROTID: Mild atherosclerotic plaque. - PLAQUE ESTIMATE (%): < 50% - CCA velocity: 78 cm/sec. - ICA peak systolic velocity: 107 cm/sec. - ICA/CCA PSV Ratio: Less than 2. Right Vertebral Artery: Antegrade flow. LEFT CAROTID: Mild atherosclerotic plaque. - PLAQUE ESTIMATE (%): < 50% - CCA velocity: 88 cm/sec. - ICA peak systolic velocity: 77 cm/sec. - ICA/CCA PSV Ratio: Less than 2. Left Vertebral Artery: Antegrade flow. IMPRESSION: 1. Right Internal Carotid Artery: Less than 50% diameter stenosis. 2. Left Internal Carotid Artery: Less than 50% diameter stenosis. Velocity criteria are extrapolated from diameter data as defined by the Society of Radiologists in Ul trasound Consensus Conference, Radiology 2003; 229;340-346. NO STENOSIS (NORMAL) - Plaque = none; ICA PSV < 125 cm/sec; ICA/CCA PSV Ratio < 2.0 <50% STENOSIS - Plaque < 50%; ICA PSV < 125 cm/sec; ICA/CCA PSV Ratio < 2.0 50-69% STENOSIS - Plaque > 50%; ICA PSV = 125-230 cm/sec; ICA/CCA PSV Ratio = 2.0-4.0 >70% BUT <100% STENOSIS - Plaque > 50%; ICA PSV > 230 cm/sec; ICA/CCA PSV Ratio > 4.0 NEAR OCCLUSION - Plaque = visible lumen; ICA PSV = high/low/none; ICA/CCA PSV Ratio = variable TOTAL OCCLUSION - Plaque = no lumen; ICA PSV = none; ICA/CCA PSV Ratio = N/A Scribed by: Salome Costa RDMS, RVT, RMSKS Scribed: 11/30/2021 12:17 PM I have reviewed the images, agree with this report, and edited this report as needed. Signer Name: Aris Bills MD Signed: 11/30/2021 1:46 PM Workstation Name: [id number]
--- NOTE | 2021-12-01 08:41 | Progress Note ---
Assessment and Plan Assessment and plan: 81 YO Male with Alzheimer's Dementia with a FAST Score of 7D, HTN, Debility presents to ED for evaluation worsening weakness. Patient son reports that the patient was in his usual state of health at bedtime at approximately 2200 hrs. Upon awakening from sleep around 0900 hrs. the patient was found "slumped over and drooling. EMS was notified and upon arrival the patient was found to be in distress with a new focal neurologic deficit. A code stroke was called and the patient was transported to [facility] for further care and evaluation of the aforementioned symptoms. The patient was seen and evaluated in the emergency department. All lab and imaging studies reviewed. The patient was found to have clinical symptoms consistent with CVA. The patient was admitted to medical floor and initiated on CVA protocol. Acute CVA Alzheimer's dementia Hypertension 11/30/2021. CTA of the head and neck reveals scattered areas of narrowing seen in the extracranial nondominant right vertebral artery particularly at the level of C5-6 of moderate degree. Echocardiogram reveals left ventricular systolic function normal with EF 55-60%. Mild diastolic dysfunction. Carotid Dopplers pending. Neurology consultation pending. Await PT/OT evaluation 12/01/2021. Await neurology consultation. Await PT/OT evaluation. Continue aspirin and Lipitor for secondary prevention History Interval history: No new issues overnight. Hospitalist Physical - Constitutional Vitals: Temp Pulse Resp BP Pulse Ox 99.9 F H 94 H 18 134/77 99 12/01/21 04:30 12/01/21 04:30 12/01/21 04:30 12/01/21 04:30 12/01/21 04:30 General appearance: Present: mild distress - EENT Eyes: Present: PERRL, EOM intact ENT: hearing intact, clear oral mucosa, dentition normal - Neck Neck: Present: supple, normal ROM - Respiratory Respiratory effort: normal Respiratory: bilateral: CTA - Cardiovascular Rhythm: regular Heart Sounds: Present: S1 & S2. Absent: gallop, rub - Extremities Extremities: no ischemia, No edema, Full ROM - Abdominal General gastrointestinal: soft, non-tender, non-distended, normal bowel sounds - Integumentary Integumentary: Present: clear, warm, dry - Neurologic Neurologic: CNII-XII intact, moves all extremities HEART Score - HEART Score Troponin: Troponin T 0.029 ng/mL (0.00-0.029) 11/29/21 12:19 Results - Labs CBC & Chem 7: 11/29/21 12:19 11/29/21 12:19 Labs: Laboratory Last Values WBC 8.6 K/mm3 (4.5-11.0) 11/29/21 12:19 RBC 3.77 M/mm3 (3.65-5.03) 11/29/21 12:19 Hgb 12.3 gm/dl (11.8-15.2) 11/29/21 12:19 Hct 37.7 % (35.5-45.6) 11/29/21 12:19 MCV 100 fl (84-94) H 11/29/21 12:19 MCH 33 pg (28-32) H 11/29/21 12:19 MCHC 33 % (32-34) 11/29/21 12:19 RDW 14.4 % (13.2-15.2) 11/29/21 12:19 Plt Count 266 K/mm3 (140-440) 11/29/21 12:19 Lymph % (Auto) 9.1 % (13.4-35.0) L 11/29/21 12:19 [place] % (Auto) 10.3 % (0.0-7.3) H 11/29/21 12:19 Eos % (Auto) 0.1 % (0.0-4.3) 11/29/21 12:19 Baso % (Auto) 0.7 % (0.0-1.8) 11/29/21 12:19 Lymph # (Auto) 0.8 K/mm3 (1.2-5.4) L 11/29/21 12:19 [place] # (Auto) 0.9 K/mm3 (0.0-0.8) H 11/29/21 12:19 Eos # (Auto) 0.0 K/mm3 (0.0-0.4) 11/29/21 12:19 Baso # (Auto) 0.1 K/mm3 (0.0-0.1) 11/29/21 12:19 Seg Neutrophils % 79.8 % (40.0-70.0) H 11/29/21 12:19 Seg Neutrophils # 6.9 K/mm3 (1.8-7.7) 11/29/21 12:19 PT 14.0 Sec. (12.2-14.9) 11/29/21 18:01 INR 0.95 (0.87-1.13) 11/29/21 18:01 APTT 32.5 Sec. (24.2-36.6) 11/29/21 18:01 Sodium 141 mmol/L (137-145) 11/29/21 12:19 Potassium 4.3 mmol/L (3.6-5.0) 11/29/21 12:19 Chloride 103.9 mmol/L (98-107) 11/29/21 12:19 Carbon Dioxide 21 mmol/L (22-30) L 11/29/21 12:19 Anion Gap 20 mmol/L 11/29/21 12:19 BUN 27 mg/dL (9-20) H 11/29/21 12:19 Creatinine 1.3 mg/dL (0.8-1.3) 11/29/21 12:19 Estimated GFR > 60 ml/min 11/29/21 12:19 BUN/Creatinine Ratio 21 % 11/29/21 12:19 Glucose 120 mg/dL (75-100) H 11/29/21 12:19 POC Glucose 120 mg/dL (70-105) H 11/30/21 00:05 Calcium 8.7 mg/dL (8.4-10.2) 11/29/21 12:19 Total Bilirubin 0.40 mg/dL (0.1-1.2) 11/29/21 12:19 AST 24 units/L (5-40) 11/29/21 12:19 ALT 9 units/L (7-56) 11/29/21 12:19 Alkaline Phosphatase 108 units/L (35-129) 11/29/21 12:19 Troponin T 0.029 ng/mL (0.00-0.029) 11/29/21 12:19 NT-Pro-B Natriuret Pep 632.5 pg/mL (0-900) 11/29/21 20:29 Total Protein 7.2 g/dL (6.3-8.2) 11/29/21 12:19 Albumin 3.5 g/dL (3.9-5) L 11/29/21 12:19 Albumin/Globulin Ratio 0.9 % 11/29/21 12:19 Urine Color Yellow (Yellow) 11/29/21 16:52 Urine Turbidity Clear (Clear) 11/29/21 16:52 Urine pH 7.0 (5.0-7.0) 11/29/21 16:52 Ur Specific [place] 1.024 (1.003-1.030) 11/29/21 16:52 Urine Protein 100 mg/dl mg/dL (Negative) 11/29/21 16:52 Urine Glucose (UA) Neg mg/dL (Negative) 11/29/21 16:52 Urine Ketones Neg mg/dL (Negative) 11/29/21 16:52 Urine Blood Neg (Negative) 11/29/21 16:52 Urine Nitrite Neg (Negative) 11/29/21 16:52 Urine Bilirubin Neg (Negative) 11/29/21 16:52 Urine Urobilinogen < 2 mg/dL (<2.0) 11/29/21 16:52 Ur Leukocyte Esterase Neg (Negative) 11/29/21 16:52 Urine WBC (Auto) 1.0 /HPF (0.0-6.0) 11/29/21 16:52 Urine RBC (Auto) 1.0 /HPF (0.0-6.0) 11/29/21 16:52 U Epithel Cells (Auto) < 1.0 /HPF (0-13.0) 11/29/21 16:52 Urine Mucus Few /HPF 11/29/21 16:52 Ralph/IV: Voiding Method Condom Catheter Active Medications - Current Medications Current Medications: Generic Name Dose Route Start Last Admin Trade Name Freq PRN Reason Stop Dose Admin Acetaminophen 650 mg 11/29/21 20:15 Acetaminophen 325 Mg Tab PO Q4H PRN Pain, Mild (1-3) Aspirin 325 mg 11/30/21 10:00 11/30/21 13:04 Aspirin 325 Mg Tab PO 325 mg QDAY RITA Administration Atorvastatin Calcium 40 mg 11/29/21 22:00 11/30/21 22:20 Atorvastatin 40 Mg Tab PO 40 mg QHS RITA Administration Bisacodyl 10 mg 11/29/21 20:15 Bisacodyl 10 Mg Rect Supp [place] QDAY PRN Constipation Hydromorphone HCl 0.5 mg 11/29/21 20:15 Hydromorphone 0.5 Mg/0.5 Ml Inj IV Q23H PRN Pain , Severe (7-10) Magnesium Hydroxide 30 ml 11/29/21 20:15 Magnesium Hydroxide (Mom) Oral Liqd Udc PO Q4H PRN Constipation Metoclopramide HCl 10 mg 11/29/21 20:15 Metoclopramide 10 Mg Tab PO Q6H PRN Nausea And Vomiting Miscellaneous Medication 1 cap 11/29/21 22:00 Memantine/Donepezil (Nf) PO QHS RITA Ondansetron HCl 4 mg 11/29/21 20:15 Ondansetron 4 Mg/2 Ml Inj IV Q8H PRN Nausea And Vomiting Oxycodone/Acetaminophen 1 tab 11/29/21 20:15 Oxycodone /Acetaminophen 5-325mg Tab PO Q6H PRN Pain, Moderate (4-6) Promethazine HCl 25 mg 11/29/21 20:15 Promethazine 25 Mg Rect Supp [place] Q6H PRN Nausea And Vomiting Sodium Chloride 10 ml 11/29/21 20:45 11/30/21 22:25 Sodium Chloride 0.9% 10 Ml Flush Syringe IV 10 ml PRN PRN Administration LINE FLUSH
[2021-12-01] MEDS: ASPIRIN 325 MG TAB PO SCH (12:02)
[2021-12-01 23:33] LABS: Basophils % (Auto) 0.7 % (0.0-1.8); Eosinophils # (Auto) 0.2 K/mm3 (0.0-0.4); Eosinophils % (Auto) 2.8 % (0.0-4.3); Hematocrit 30.1 % (35.5-45.6); Hemoglobin 10.3 gm/dl (11.8-15.2); Lymphocytes # (Auto) 1.1 K/mm3 (1.2-5.4); Lymphocytes % (Auto) 18.6 % (13.4-35.0); Mean Corpuscular HGB Conc 34 % (32-34); Mean Corpuscular Volume 101 fl (84-94); Monocytes # (Auto) 0.8 K/mm3 (0.0-0.8); Monocytes % (Auto) 13.6 % (0.0-7.3); Platelet Count 242 K/mm3 (140-440); Red Blood Count 2.98 M/mm3 (3.65-5.03); Red Cell Distribution Width 13.6 % (13.2-15.2)
[2021-12-01 23:39] LABS: BUN/Creatinine Ratio 27; Blood Urea Nitrogen 32 mg/dL (9-20); Calcium 8.7 mg/dL (8.4-10.2); Hemolysis Index 8
[2021-12-01 23:55] LABS: Chol/HDL Ratio 2.6 %
[2021-12-02] MEDS: ASPIRIN 325 MG TAB PO SCH (10:02)
--- NOTE | 2021-12-02 10:09 | Progress Note ---
Assessment and Plan Assessment and plan: 81 YO Male with Alzheimer's Dementia with a FAST Score of 7D, HTN, Debility presents to ED for evaluation worsening weakness. Patient son reports that the patient was in his usual state of health at bedtime at approximately 2200 hrs. Upon awakening from sleep around 0900 hrs. the patient was found "slumped over and drooling. EMS was notified and upon arrival the patient was found to be in distress with a new focal neurologic deficit. A code stroke was called and the patient was transported to [facility] for further care and evaluation of the aforementioned symptoms. The patient was seen and evaluated in the emergency department. All lab and imaging studies reviewed. The patient was found to have clinical symptoms consistent with CVA. The patient was admitted to medical floor and initiated on CVA protocol. Acute CVA Alzheimer's dementia Hypertension 11/30/2021. CTA of the head and neck reveals scattered areas of narrowing seen in the extracranial nondominant right vertebral artery particularly at the level of C5-6 of moderate degree. Echocardiogram reveals left ventricular systolic function normal with EF 55-60%. Mild diastolic dysfunction. Carotid Dopplers pending. Neurology consultation pending. Await PT/OT evaluation 12/01/2021. Await neurology consultation. Await PT/OT evaluation. Continue aspirin and Lipitor for secondary prevention 12/02/2021. PT/OT recommends TREE. Await Neuro consult. Continue aspirin and Lipitor for secondary prevention. Will discuss with case management discharge planning History Interval history: No new issues overnight. Hospitalist Physical - Constitutional Vitals: Temp Pulse Resp BP Pulse Ox 98.0 F 73 16 113/74 100 12/02/21 07:44 12/02/21 07:44 12/02/21 07:44 12/02/21 07:44 12/02/21 07:44 General appearance: Present: no acute distress - EENT Eyes: Present: PERRL, EOM intact ENT: hearing intact, clear oral mucosa, dentition normal - Neck Neck: Present: supple, normal ROM - Respiratory Respiratory effort: normal Respiratory: bilateral: CTA - Cardiovascular Rhythm: regular Heart Sounds: Present: S1 & S2. Absent: gallop, rub - Extremities Extremities: no ischemia, No edema, Full ROM - Abdominal General gastrointestinal: soft, non-tender, non-distended, normal bowel sounds - Integumentary Integumentary: Present: clear, warm, dry - Neurologic Neurologic: CNII-XII intact, moves all extremities HEART Score - HEART Score Troponin: Troponin T 0.029 ng/mL (0.00-0.029) 11/29/21 12:19 Results - Labs CBC & Chem 7: 12/01/21 22:39 12/01/21 22:39 Labs: Laboratory Last Values WBC 5.8 K/mm3 (4.5-11.0) 12/01/21 22:39 RBC 2.98 M/mm3 (3.65-5.03) L 12/01/21 22:39 Hgb 10.3 gm/dl (11.8-15.2) L 12/01/21 22:39 Hct 30.1 % (35.5-45.6) L D 12/01/21 22:39 MCV 101 fl (84-94) H 12/01/21 22:39 MCH 35 pg (28-32) H 12/01/21 22:39 MCHC 34 % (32-34) 12/01/21 22:39 RDW 13.6 % (13.2-15.2) 12/01/21 22:39 Plt Count 242 K/mm3 (140-440) 12/01/21 22:39 Lymph % (Auto) 18.6 % (13.4-35.0) 12/01/21 22:39 [place] % (Auto) 13.6 % (0.0-7.3) H 12/01/21 22:39 Eos % (Auto) 2.8 % (0.0-4.3) 12/01/21 22:39 Baso % (Auto) 0.7 % (0.0-1.8) 12/01/21 22:39 Lymph # (Auto) 1.1 K/mm3 (1.2-5.4) L 12/01/21 22:39 [place] # (Auto) 0.8 K/mm3 (0.0-0.8) 12/01/21 22:39 Eos # (Auto) 0.2 K/mm3 (0.0-0.4) 12/01/21 22:39 Baso # (Auto) 0.0 K/mm3 (0.0-0.1) 12/01/21 22:39 Seg Neutrophils % 64.3 % (40.0-70.0) 12/01/21 22:39 Seg Neutrophils # 3.7 K/mm3 (1.8-7.7) 12/01/21 22:39 PT 14.0 Sec. (12.2-14.9) 11/29/21 18:01 INR 0.95 (0.87-1.13) 11/29/21 18:01 APTT 32.5 Sec. (24.2-36.6) 11/29/21 18:01 Sodium 142 mmol/L (137-145) 12/01/21 22:39 Potassium 4.5 mmol/L (3.6-5.0) 12/01/21 22:39 Chloride 108.1 mmol/L (98-107) H 12/01/21 22:39 Carbon Dioxide 26 mmol/L (22-30) 12/01/21 22:39 Anion Gap 12 mmol/L 12/01/21 22:39 BUN 32 mg/dL (9-20) H 12/01/21 22:39 Creatinine 1.2 mg/dL (0.8-1.3) 12/01/21 22:39 Estimated GFR > 60 ml/min 12/01/21 22:39 BUN/Creatinine Ratio 27 % 12/01/21 22:39 Glucose 111 mg/dL (75-100) H 12/01/21 22:39 POC Glucose 120 mg/dL (70-105) H 11/30/21 00:05 Calcium 8.7 mg/dL (8.4-10.2) 12/01/21 22:39 Total Bilirubin 0.40 mg/dL (0.1-1.2) 11/29/21 12:19 AST 24 units/L (5-40) 11/29/21 12:19 ALT 9 units/L (7-56) 11/29/21 12:19 Alkaline Phosphatase 108 units/L (35-129) 11/29/21 12:19 Troponin T 0.029 ng/mL (0.00-0.029) 11/29/21 12:19 NT-Pro-B Natriuret Pep 632.5 pg/mL (0-900) 11/29/21 20:29 Total Protein 7.2 g/dL (6.3-8.2) 11/29/21 12:19 Albumin 3.5 g/dL (3.9-5) L 11/29/21 12:19 Albumin/Globulin Ratio 0.9 % 11/29/21 12:19 Triglycerides 69 mg/dL (2-149) 12/01/21 22:39 Cholesterol 130 mg/dL (50-199) 12/01/21 22:39 LDL Cholesterol Direct 65 mg/dL (50-130) 12/01/21 22:39 HDL Cholesterol 50 mg/dL (40-59) 12/01/21 22:39 Cholesterol/HDL Ratio 2.60 % 12/01/21 22:39 Urine Color Yellow (Yellow) 11/29/21 16:52 Urine Turbidity Clear (Clear) 11/29/21 16:52 Urine pH 7.0 (5.0-7.0) 11/29/21 16:52 Ur Specific [place] 1.024 (1.003-1.030) 11/29/21 16:52 Urine Protein 100 mg/dl mg/dL (Negative) 11/29/21 16:52 Urine Glucose (UA) Neg mg/dL (Negative) 11/29/21 16:52 Urine Ketones Neg mg/dL (Negative) 11/29/21 16:52 Urine Blood Neg (Negative) 11/29/21 16:52 Urine Nitrite Neg (Negative) 11/29/21 16:52 Urine Bilirubin Neg (Negative) 11/29/21 16:52 Urine Urobilinogen < 2 mg/dL (<2.0) 11/29/21 16:52 Ur Leukocyte Esterase Neg (Negative) 11/29/21 16:52 Urine WBC (Auto) 1.0 /HPF (0.0-6.0) 11/29/21 16:52 Urine RBC (Auto) 1.0 /HPF (0.0-6.0) 11/29/21 16:52 U Epithel Cells (Auto) < 1.0 /HPF (0-13.0) 11/29/21 16:52 Urine Mucus Few /HPF 11/29/21 16:52 Ralph/IV: Voiding Method Condom Catheter Active Medications - Current Medications Current Medications: Generic Name Dose Route Start Last Admin Trade Name Freq PRN Reason Stop Dose Admin Acetaminophen 650 mg 11/29/21 20:15 Acetaminophen 325 Mg Tab PO Q4H PRN Pain, Mild (1-3) Aspirin 325 mg 09/28/22 10:00 12/02/21 10:02 Aspirin 325 Mg Tab PO 325 mg QDAY RITA Administration Atorvastatin Calcium 40 mg 11/29/21 22:00 12/01/21 22:09 Atorvastatin 40 Mg Tab PO 40 mg QHS RITA Administration Bisacodyl 10 mg 11/29/21 20:15 Bisacodyl 10 Mg Rect Supp [place] QDAY PRN Constipation Hydromorphone HCl 0.5 mg 11/29/21 20:15 Hydromorphone 0.5 Mg/0.5 Ml Inj IV Q23H PRN Pain , Severe (7-10) Magnesium Hydroxide 30 ml 11/29/21 20:15 Magnesium Hydroxide (Mom) Oral Liqd Udc PO Q4H PRN Constipation Metoclopramide HCl 10 mg 11/29/21 20:15 Metoclopramide 10 Mg Tab PO Q6H PRN Nausea And Vomiting Miscellaneous Medication 1 cap 11/29/21 22:00 Memantine/Donepezil (Nf) PO QHS [facility] Ondansetron HCl 4 mg 11/29/21 20:15 Ondansetron 4 Mg/2 Ml Inj IV Q8H PRN Nausea And Vomiting Oxycodone/Acetaminophen 1 tab 11/29/21 20:15 Oxycodone /Acetaminophen 5-325mg Tab PO Q6H PRN Pain, Moderate (4-6) Promethazine HCl 25 mg 11/29/21 20:15 Promethazine 25 Mg Rect Supp [place] Q6H PRN Nausea And Vomiting Sodium Chloride 10 ml 11/29/21 20:45 11/30/21 22:25 Sodium Chloride 0.9% 10 Ml Flush Syringe IV 10 ml PRN PRN Administration LINE FLUSH
--- NOTE | 2021-12-02 11:21 | Consultation ---
History of Present Illness Consult date: 12/02/21 Reason for Consult: AMS History of present illness: Consulted AMS and CVA - reviewed the history from the chart . Patient has Dementia. Past History Past Medical History: hypertension, other (See HPI) Past Surgical History: appendectomy Social history: single, lives with family. denies: smoking, alcohol abuse, prescription drug abuse Family history: hypertension Medications and Allergies Allergies Allergy/AdvReac Type Severity Reaction Status Date / Time No Known Allergies Allergy Verified 11/29/21 11:29 Home Medications Medication Instructions Recorded Confirmed Last Taken Type amLODIPine 10 mg PO HS #30 tablet 05/10/15 11/30/21 11/28/21 Rx Losartan Potassium 100 mg PO QDAY 08/16/21 11/30/21 11/28/21 History Memantine/Donepezil (Nf) [Namzaric 1 cap PO QHS 08/16/21 11/30/21 Unknown History 28 mg-10 mg (Nf)] Active Meds: Active Medications Acetaminophen (Acetaminophen 325 Mg Tab) 650 mg PO Q4H PRN PRN Reason: Pain, Mild (1-3) Aspirin (Aspirin 325 Mg Tab) 325 mg PO QDAY [facility] Last Admin: 12/02/21 10:02 Dose: 325 mg Atorvastatin Calcium (Atorvastatin 40 Mg Tab) 40 mg PO QHS [facility] Last Admin: 12/01/21 22:09 Dose: 40 mg Bisacodyl (Bisacodyl 10 Mg Rect Supp) 10 mg [place] QDAY PRN PRN Reason: Constipation Hydromorphone HCl (Hydromorphone 0.5 Mg/0.5 Ml Inj) 0.5 mg IV Q23H PRN PRN Reason: Pain , Severe (7-10) Magnesium Hydroxide (Magnesium Hydroxide (Mom) Oral Liqd Udc) 30 ml PO Q4H PRN PRN Reason: Constipation Metoclopramide HCl (Metoclopramide 10 Mg Tab) 10 mg PO Q6H PRN PRN Reason: Nausea And Vomiting Miscellaneous Medication (Memantine/Donepezil (Nf)) 1 cap PO QHS RITA Ondansetron HCl (Ondansetron 4 Mg/2 Ml Inj) 4 mg IV Q8H PRN PRN Reason: Nausea And Vomiting Oxycodone/Acetaminophen (Oxycodone /Acetaminophen 5-325mg Tab) 1 tab PO Q6H PRN PRN Reason: Pain, Moderate (4-6) Promethazine HCl (Promethazine 25 Mg Rect Supp) 25 mg [place] Q6H PRN PRN Reason: Nausea And Vomiting Sodium Chloride (Sodium Chloride 0.9% 10 Ml Flush Syringe) 10 ml IV PRN PRN PRN Reason: LINE FLUSH Last Admin: 11/30/21 22:25 Dose: 10 ml Physical Examination - Vital Signs Vital Signs: Vital Signs Pulse Ox 100 11/29/21 12:33 - Physical Exam Narrative exam: 1. Non Verbal , moves upper and lower extremity on stiumulation. Results - Laboratory Findings CBC and BMP: 12/01/21 22:39 12/01/21 22:39 Abnormal Lab Findings: Abnormal Labs 11/29/21 11/29/21 11/30/21 12:19 12:19 00:05 RBC Hgb Hct MCV 100 H MCH 33 H Lymph % (Auto) 9.1 L [place] % (Auto) 10.3 H Lymph # (Auto) 0.8 L [place] # (Auto) 0.9 H Seg Neutrophils % 79.8 H Chloride Carbon Dioxide 21 L BUN 27 H Glucose 120 H POC Glucose 120 H Albumin 3.5 L 12/01/21 12/01/21 22:39 22:39 RBC 2.98 L Hgb 10.3 L Hct 30.1 L D MCV 101 H MCH 35 H Lymph % (Auto) [place] % (Auto) 13.6 H Lymph # (Auto) 1.1 L [place] # (Auto) Seg Neutrophils % Chloride 108.1 H Carbon Dioxide BUN 32 H Glucose 111 H POC Glucose Albumin Assessment and Plan 1. Encephalopathy ( Multifactorial ) 2. Reviewed Head CT and CTA 3. No change in medications recommended . 4. Continue Current Plan. 5. Call Back with Questions . Dr. Black
--- NOTE | 2021-12-02 12:12 | Electrocardiograph Report ---
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
[2021-12-02 20:05] VITALS: BP 142/73
== END 2021-12-02 22:53 | disposition hospice, home (50) | DRG 64 ==
LOC: ED 11:24 → 4A 20:16
PROVIDERS: ADMIT Internal Medicine; ATTEND Hospitalist
DX: I63.9 Cerebral infarction, unspecified (principal); G93.41 Metabolic encephalopathy; I10 Essential (primary) hypertension; G30.9 Alzheimer's disease, unspecified; F02.80 Dementia in other diseases classified elsewhere, unspecified severity, without behavioral disturbance, psychotic disturbance, mood disturbance, and anxiety; R53.81 Other malaise; Z90.49 Acquired absence of other specified parts of digestive tract; Z20.822 Contact with and (suspected) exposure to COVID-19
CPT/HCPCS: 36415; 70450; 70496; 70498; 71045; 80048; 80053; 80061; 81001; 82962; 83880; 84484; 85025; 85610; 85730; 93005; 93306; 93880; 96374; 99285; G0378; C8929; Q9967